=== PATIENT | male | born 1935 | race Caucasian/White ===

== ENCOUNTER → 2020-06-25 15:30 | Outpatient (BNVA) | payer MEDICARE, SELFPAY | PROVIDERS: Visit Provider Urology | DX: R97.20 Elevated prostate specific antigen [PSA] (principal); Z12.5 Encounter for screening for malignant neoplasm of prostate | CPT/HCPCS: 99212 ==

== ENCOUNTER 2020-12-24 12:35 | Outpatient (REF) | payer MEDICARE, SELFPAY ==
[2020-12-24 15:04] LABS: PSA,Total (Free>4and<10) 4.62 ng/mL (0.00-4.00)
[2020-12-25 12:07] LABS: Free Prostate Spec Ag 0.4 ng/mL; Percent Free Prostate Spec Ag 12 % (calc) (>25); Prostate Specific Ag Total 3.3 ng/mL (< OR = 4.0)
== END 2020-12-24 12:36 | disposition home or self-care (01) ==
LOC: HO.10HDL 12:35
PROVIDERS: PCP Urology; Visit Provider Urology
DX: N40.1 Benign prostatic hyperplasia with lower urinary tract symptoms (principal); N13.8 Other obstructive and reflux uropathy; N40.2 Nodular prostate without lower urinary tract symptoms
CPT/HCPCS: 36415; 84153; 84154

== ENCOUNTER → 2020-12-30 14:57 | Outpatient (BNVA) | payer MEDICARE, SELFPAY | PROVIDERS: Visit Provider Urology | DX: R97.20 Elevated prostate specific antigen [PSA] (principal); N40.2 Nodular prostate without lower urinary tract symptoms | CPT/HCPCS: 99212 ==

== ENCOUNTER → 2022-05-24 14:28 | Outpatient (BNVA) | payer MEDICARE, SELFPAY | PROVIDERS: PCP Internal Medicine; Visit Provider Urology | DX: R97.20 Elevated prostate specific antigen [PSA] (principal); C61 Malignant neoplasm of prostate; N40.2 Nodular prostate without lower urinary tract symptoms | CPT/HCPCS: 51798; 99212 ==

== ENCOUNTER → 2022-09-23 13:26 | Outpatient (BNVA) | payer MEDICARE, SELFPAY | PROVIDERS: PCP Internal Medicine; Visit Provider Urology | DX: R97.20 Elevated prostate specific antigen [PSA] (principal) | CPT/HCPCS: Q3014 ==

== ENCOUNTER 2023-03-23 10:01 | Outpatient (REF) | payer MEDICARE, SELFPAY ==
[2023-03-23 11:24] LABS: PSA,Total (Free>4and<10) 8.53 ng/mL (0.00-4.00)
[2023-03-27 13:08] LABS: Free Prostate Spec Ag 1.3 ng/mL; Percent Free Prostate Spec Ag 17 % (calc) (>25); Prostate Specific Ag Total 7.6 ng/mL (< OR = 4.0)
== END 2023-03-23 10:02 | disposition home or self-care (01) ==
LOC: HO.10HDL 10:01
PROVIDERS: Visit Provider Urology
DX: Z12.5 Encounter for screening for malignant neoplasm of prostate (principal); R97.20 Elevated prostate specific antigen [PSA]
CPT/HCPCS: 36415; 84153; 84154

== ENCOUNTER 2023-03-28 14:33 | Outpatient (AMB) | payer MEDICARE, SELFPAY ==
--- NOTE | 2023-03-28 14:33 | MHC.OFFVIS ---
Intake Intake Visit Reasons: 6M PSA(set) Intake Note: Patient is present for Follow Up PSA Urology Med: Finasteride, Terazosin Antibiotic Allergy:None Blood Thinner: None Allergies No Known Allergies Allergy (Verified 03/28/23 14:35) HPI HPI Comments History of Present Illness Details Yan is a very pleasant male. He is a patient of Dr. Kate. 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 Slight climbing PSA through finasteride SARAI 1+ Discussed prostate biopsy Elevated PSA Here for elevated PSA On combination therapy - finasteride and terazosin PSA staying mildly elevated for 85-year-old He has good benefit from combination finasteride and Hytrin Continue to observe He presents for - further evaluation of elevated PSA Laboratory investigations include - a total PSA evaluation 09.12 - 12/23 4.6, 05/26 6.7 F 21%, 09/26 6.4, 03/26 7.6 17% Imaging investigations include - none Individualized Prostate Cancer Risk Calculator - 5-10% chance of prostate cancer diagnosis, Symptoms include - 06/23 weak stream occasional nocturia Overall symptoms are mild His prior IPSS was mild Therapeutic plan will be - prostate biopsy Review of Systems Const Denies chills and Denies fever(s) Card Reports no additional complaints and Denies syncope Resp Denies cough GI Denies abdominal pain and Denies heartburn Reports as per HPI and Denies change in libido Neuro Denies syncope Psych Denies change in libido Endo Denies change in libido Physical Exam Const General: cooperative, healthy appearing, comfortable and no acute distress Orientation/consciousness: patient oriented x3 HEENT Face and sinus: Yes normal facial exam Mouth: moist mucous membranes Neck Neck: Yes normal visual inspection, Yes full ROM and Yes trachea midline Chest Chest palpation & inspection: normal inspection of the chest Resp Effort & Inspection: normal respiratory effort, able to speak in complete sentences and no respiratory distress GI Inspection: Yes normal to inspection Rectal Exam - Male: Yes normal sphincter tone and Yes prostate normal Male General Exam: Yes normal external exam Penis: normal penis and circumcised Meatus: meatus normal Scrotum: scrotum normal Testes: Testes normal Back/Spine/Pelvis Cervical Spine: normal cervical lordosis Thoracic/Lumbar Spine: thoracic and lumbar spine normal to inspection Skin General skin exam: no rashes or lesions noted Neuro General: patient oriented x3, gait normal, tone normal and moves all extremities Extrem General: Yes normal to inspection and Yes capillary refill normal Assessment & Plan Assessment & Plan (1) Elevated PSA: Code(s): R97.20 - Elevated prostate specific antigen [PSA] (2) Prostate nodule: Code(s): N40.2 - Nodular prostate without lower urinary tract symptoms Plan Risks and benefits regarding trans rectal ultrasound with prostate biopsy were discussed. Options of continued surveillance, no treatment and biopsy were offered. The risks include but are not limited to, urinary tract infection, sepsis, difficulty urinating, bleeding into the rectum or bladder that requires intervention and transfusion,and failure to diagnose prostate cancer. The patient understands the options and the risks involved. They wish to proceed. Printed information was provided to ensure he remains off anticoagulation for the appropriate length of time. He may require cardiology or PCP clearance. An antibiotic will be administered prior to, and following the procedure Patient Instructions: Imaging studies, laboratory and physical exam results were discussed and reviewed in detail. No major barriers to patient understanding were identified. An opportunity to ask questions regarding the treatment plan was provided. All questions were answered. The patient expressed understanding and agreement with the above treatment plan. The patient is aware they should contact our office by phone for worsening of their current condition or the appearance of new urologic symptoms. Compliance is encouraged with any medications and followup testing that is ordered. It is a privilege to participate in the urologic care of your patient. If you have any questions or concerns regarding treatment for the above conditions, or other urologic issues, please do not hesitate to contact me. The office telephone contact is [phone]. This note is constructed using voice recognition software. While every effort has been made to ensure accuracy wax pattern coater errors may have been included. Yours sincerely, Dr Shailesh Spivey MD, [facility] - Urology Providers of Expert, Compassionate Care for the Genitourinary System Coding Level of Care Code Est Pt Level 4 (37539) Diagnoses Elevated PSA R97.20 Prostate nodule N40.2
== END 2023-03-28 15:06 | disposition home or self-care (01) ==
PROVIDERS: Visit Provider Urology
DX: R97.20 Elevated prostate specific antigen [PSA] (principal); N40.2 Nodular prostate without lower urinary tract symptoms
CPT/HCPCS: 99214

== ENCOUNTER → 2023-03-28 14:33 | Outpatient (BNVA) | payer MEDICARE, SELFPAY | PROVIDERS: Visit Provider Urology | DX: N40.2 Nodular prostate without lower urinary tract symptoms (principal); R97.20 Elevated prostate specific antigen [PSA] | CPT/HCPCS: 99212 ==

== ENCOUNTER 2023-04-26 07:20 | Outpatient (REF) | payer MEDICARE, SELFPAY ==
[2023-04-26 07:42] VITALS: BMI 23.0
[2023-04-26 07:43] VITALS: BP 176/83; RESP 16; TEMP 36.2; O2SAT 96
--- NOTE | 2023-04-26 08:22 | W.PM.OPN ---
Operative Note Operative Note Date of Service: 04/26/23 Narrative: Preoperative diagnosis: Elevated PSA Postoperative diagnosis: Elevated PSA Procedure: 1. transrectal ultrasound measurement of prostate 2. transrectal ultrasound-guided pudendal nerve block 3. transrectal ultrasound-guided prostate biopsy 12 core Surgeon: Dr. Shailesh Spivey Anesthetic: Local Indications for procedure: Elevated PSA 7.6 17% on fnasteride Procedure: After informed consent was verified, the patient was brought into the procedure area and lay left-hand side down on the table. Patient identity confirmed. Perioperative antibiotics confirmed. Safety pause time out performed. SARAI performed to dilate rectal sphincter Iodine 10cc with Gel was placed per rectum Ultrasound probe was placed per rectum The prostate was measured in 3 dimensions Total volume equals 45 gm No cystic structures were noted Yes calcifications were noted at the surgical margin The prostate was otherwise heterogenous in nature An ultrasound-guided pudendal nerve block was performed using 10 cc of 1% lidocaine. 8 cc was placed at the base and 2 cc of the apex. A 12 core biopsy was performed with 6 cores each side. Two cores were taken at the apex, mid and base. Cores were spaced between lateral and medial. He tolerated the procedure well. Was able to ambulate to bathroom after 5 minutes. Printed instructions regarding antibiotic use and common side effects such as low-grade temperature, potential infection and bleeding were given Pathology: 12 core prostate biopsy.
[2023-04-26 08:25] VITALS: BP 180/86; PULSE 62; RESP 16; O2SAT 98
== END 2023-04-26 07:21 | disposition home or self-care (01) ==
LOC: HO.MS 07:20
PROVIDERS: PCP Internal Medicine; Visit Provider Urology
PROC: (CPT 55700; principal; 2023-04-26 08:00)
DX: C61 Malignant neoplasm of prostate (principal); R97.20 Elevated prostate specific antigen [PSA]
CPT/HCPCS: 55700; 76942; 88305

== ENCOUNTER → 2023-04-26 07:20 | Outpatient (BNV) | payer MEDICARE, SELFPAY | PROVIDERS: PCP Internal Medicine; Visit Provider Urology | DX: R97.20 Elevated prostate specific antigen [PSA] (principal) | CPT/HCPCS: 55700; 76942 ==

== ENCOUNTER 2023-05-03 11:38 | Outpatient (AMB) | payer MEDICARE, SELFPAY ==
--- NOTE | 2023-05-03 11:57 | A.OFFVIS_ITS ---
Intake Intake Visit Reasons: biopsy results Intake Note: Patient is present for Follow Up Biopsy Results Urology Med: Finasteride, Terazosin Antibiotic Allergy: Levaquin Blood Thinner: None Pharmacy: [facility] Allergies levaquin Adverse Reaction (Unknown, Uncoded 05/03/23 11:58) Unknown HPI HPI Comments History of Present Illness Details Yan is a very pleasant male. He is a patient of Dr. Kate. 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 Histologic grade: Nasreen score: 3+4=7 (D), 3+5=8 (L), 4+5=9 (F) % of pattern 4: 35% % of pattern 5: 10% Grade group: 2 (D), 4 (L), 5 (F) Number cores positive: 3 Total number of cores: 12 % of tissue involved: 15% Periprostatic fat inv.: Present Seminal vesicle inv.: Not identified Perineural inv.: Not identified LVI: Not identified Elevated PSA Here for elevated PSA On combination therapy - finasteride and terazosin PSA staying mildly elevated for 85-year-old He has good benefit from combination finasteride and Hytrin Continue to observe He presents for - further evaluation of elevated PSA Laboratory investigations include - a total PSA evaluation 1998 1.9 - 12/23 4.6, 05/26 6.7 F 21%, 09/26 6.4, 7.6 17% Imaging investigations include - none Individualized Prostate Cancer Risk Calculator - 5-10% chance of prostate cancer diagnosis, Symptoms include - 06/23 weak stream occasional nocturia Overall symptoms are mild His prior IPSS was mild Therapeutic plan will be - prostate biopsy Assessment & Plan Assessment & Plan (1) Prostate cancer: Code(s): C61 - Malignant neoplasm of prostate (2) Prostate nodule: Code(s): N40.2 - Nodular prostate without lower urinary tract symptoms Plan Intermittent hormone therapy Complete staging Orders: Orders NM bone scan whole body 05/03/23 C61 - Malignant neoplasm of prostate, C79.51 - Secondary malignant neoplasm of bone Patient Instructions: Imaging studies, laboratory and physical exam results were discussed and reviewed in detail. No major barriers to patient understanding were identified. An opportunity to ask questions regarding the treatment plan was provided. All questions were answered. The patient expressed understanding and agreement with the above treatment plan. The patient is aware they should contact our office by phone for worsening of their current condition or the appearance of new urologic symptoms. Compliance is encouraged with any medications and followup testing that is ordered. It is a privilege to participate in the urologic care of your patient. If you have any questions or concerns regarding treatment for the above conditions, or other urologic issues, please do not hesitate to contact me. The office telephone contact is [phone]. This note is constructed using voice recognition software. While every effort has been made to ensure accuracy dynamometer repairer errors may have been included. Yours sincerely, Dr Shailesh Spivey MD, [facility] - Urology Providers of Expert, Compassionate Care for the Genitourinary System Coding Level of Care Code Est Pt Level 4 (98371) Diagnoses Prostate cancer C61 Prostate nodule N40.2
== END 2023-05-03 12:36 | disposition home or self-care (01) ==
PROVIDERS: PCP Internal Medicine; Visit Provider Urology
DX: C61 Malignant neoplasm of prostate (principal); N40.2 Nodular prostate without lower urinary tract symptoms
CPT/HCPCS: 99213

== ENCOUNTER → 2023-05-03 11:38 | Outpatient (BNVA) | payer MEDICARE, SELFPAY | PROVIDERS: PCP Internal Medicine; Visit Provider Urology ==

== ENCOUNTER → 2023-05-17 10:26 | Outpatient (REF) | payer MEDICARE, SELFPAY ==
--- NOTE | ~2023-05-17 | NM_ITS ---
EXAMINATION: NM BONE SCAN OF THE WHOLE BODY CLINICAL INFORMATION: A 88-year-old male with clinical diagnosis of malignant neoplasm of prostate. 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 COMPARISON: No existing relevant imaging study available. TECHNIQUE: Multiple gamma scintillation camera images of the whole body were performed 2.5 hours following the intravenous administration of 27.0 mCi Tc-99m MDP. The radiotracer was injected through left antecubital superficial vein without complications. FINDINGS: In the head, no focal abnormality. In the thoracic cage and upper extremities, focal increased radiotracer activity is present along the anterior costochondral junction of the right fifth rib and to a lesser extent right seventh rib. 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 Increase tracer avidity at both shoulder likely represent arthritic changes. In the spine, linear increased radiotracer activities at lower lumbar spine and focal increased radiotracer activity T11 to the left of the midline are nonspecific, may represent degenerative changes as well as compression fracture of indeterminate etiology. Radiographic correlation is recommended. Moderate increase radiotracer activity at mid to lower cervical spine likely represent degenerative changes. In the pelvis, no suspicious focal lesion. In the lower extremities, mild increased periarticular activities at both knees (right greater than left) likely represent degenerative changes. Mild increased radiotracer activities at both feet likely represent posttraumatic and/or arthritic changes. No other definite bony abnormalities are noted. The urinary bladder and faint visualization of both kidneys are noted. ND/ND bone scan whole body IMPRESSION: 1. Multifocal nonspecific increased radiotracer activities are present at the cervicothoracic and lumbar spine as well as the right lower anterior medial rib cage. Radiographic correlation as well as follow-up PSMA PET CT study as appropriate is recommended for further clarification. 2. Nonspecific arthritic changes at both shoulders and both knees and both feet.
== END ==
LOC: HO.NUCMED 10:26
PROVIDERS: PCP Internal Medicine; Visit Provider Urology
DX: C61 Malignant neoplasm of prostate (principal); C79.51 Secondary malignant neoplasm of bone
CPT/HCPCS: 78306; A9503

== ENCOUNTER 2023-05-18 10:15 | Outpatient (AMB) | payer MEDICARE, SELFPAY ==
--- NOTE | 2023-05-18 10:52 | AM.OFFVISNUR ---
Intake Intake Visit Reasons: GnRH Allergies levaquin Adverse Reaction (Unknown, Uncoded 05/03/23 11:58) Unknown Office Meds Eligard (6 month) 45 mg (6 month) subcutaneous syringe Performing Provider: Shailesh Spivey MD [place] [facility] [place] [facility] Administered by: Loyda Manley RN on 05/18/23 10:58 Dose Route Admin Location Dispensed Lot Number Expiration Date [facility] Glazing Department Supervisor 45 mg subcut left arm 45 mg [id number] 09/04/24 15887-657-98 [employer]. Coding Assessment & Plan Assessment & Plan Orders: Orders AMB Leuprolide Injection - Practice Supplied Today C61 - Malignant neoplasm of prostate
== END 2023-05-18 11:09 | disposition home or self-care (01) ==
PROVIDERS: PCP Internal Medicine; Visit Provider Urology
DX: C61 Malignant neoplasm of prostate (principal)

== ENCOUNTER → 2023-05-18 10:15 | Outpatient (BNVA) | payer MEDICARE, SELFPAY | PROVIDERS: PCP Internal Medicine; Visit Provider Urology | DX: C61 Malignant neoplasm of prostate (principal) | CPT/HCPCS: 96402; J9217 ==

== ENCOUNTER 2023-08-09 12:03 | Outpatient (REF) | payer MEDICARE, SELFPAY ==
[2023-08-09 14:07] LABS: Prostate Specific Antigen 0.14 ng/mL (<0.05-4.0)
== END 2023-08-09 12:04 | disposition home or self-care (01) ==
LOC: HO.10HDL 12:03
PROVIDERS: Visit Provider Urology
DX: C61 Malignant neoplasm of prostate (principal); Z12.5 Encounter for screening for malignant neoplasm of prostate
CPT/HCPCS: 36415; 84153

== ENCOUNTER 2023-08-16 11:58 | Outpatient (AMB) | payer MEDICARE, SELFPAY ==
--- NOTE | 2023-08-16 11:58 | MHC.OFFVIS ---
Intake Intake Visit Reasons: 3m/PSA(set) Allergies levaquin Adverse Reaction (Unknown, Uncoded 05/03/23 11:58) Unknown HPI HPI Comments History of Present Illness Details Yan is a very pleasant male. He is a patient of Dr. Kate. He is seen for the following urologic conditions - prostate cancer - lower urinary tract symptoms Telemedicine Evaluation 15 min Consultation Doximity Sarika Video attempted Good response to GnRH injection. PSA has fallen to 0.14. Minimal symptoms. 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 PET-CT showed prostate enhancement Biopsy shows prostate cancer - high grade, low volume, clinically localized Recommend intermittent hormone therapy GnRH 05/27 Prostate cancer - 04/26 high-grade, low volume, clinically localized PSA at diagnosis 7.6, free percentage 17 on finasteride Volume of diagnosis - 45gm Histologic type: Acinar adenocarcinoma Nasreen score: 3+4=7 (D), 3+5=8 (L), 4+5=9 (F) % of pattern 4: 35% % of pattern 5: 10% Grade group: 2 (D), 4 (L), 5 (F) Number cores positive: 3 Total number of cores: 12 % of tissue involved: 15% Periprostatic fat inv.: Present Seminal vesicle inv.: Not identified Perineural inv.: Not identified LVI: Not identified Imaging 05/27 bone scan no evidence of bony disease Elevated PSA Here for elevated PSA On combination therapy - finasteride and terazosin PSA staying mildly elevated for 85-year-old He has good benefit from combination finasteride and Hytrin Continue to observe He presents for - further evaluation of elevated PSA Laboratory investigations include - a total PSA evaluation 1998 09. - 12/23 4.6, 05/26 6.7 F 21%, 09/26 6.4, 03/26 7.6 17% Review of Systems Const All systems reviewed & are unremarkable except as noted in HPI and below Reports no additional complaints Resp Reports no additional complaints GI Reports no additional complaints Reports as per HPI Musc Reports no additional complaints Physical Exam Telemedicine evaluation Appropriate responses Regular breathing rate and rhythm HEENT Head: Yes normal to inspection Ears: hearing grossly normal bilaterally Eyes General: appearance normal, both eyes and all related structures Neck Neck: Yes normal visual inspection Chest Chest palpation & inspection: normal inspection of the chest Resp Effort & Inspection: normal respiratory effort and able to speak in complete sentences Assessment & Plan Assessment & Plan (1) Prostate cancer: Code(s): C61 - Malignant neoplasm of prostate Plan Three month follow-up PSA with GnRH Orders: Orders Testosterone, Total 3 Months C61 - Malignant neoplasm of prostate Prostate Specific Antigen 3 Months C61 - Malignant neoplasm of prostate Patient Instructions: Imaging studies, laboratory and physical exam results were discussed and reviewed in detail. No major barriers to patient understanding were identified. An opportunity to ask questions regarding the treatment plan was provided. All questions were answered. The patient expressed understanding and agreement with the above treatment plan. The patient is aware they should contact our office by phone for worsening of their current condition or the appearance of new urologic symptoms. Compliance is encouraged with any medications and followup testing that is ordered. It is a privilege to participate in the urologic care of your patient. If you have any questions or concerns regarding treatment for the above conditions, or other urologic issues, please do not hesitate to contact me. The office telephone contact is [phone]. This note is constructed using voice recognition software. While every effort has been made to ensure accuracy solar sales specialist errors may have been included. Yours sincerely, Dr Shailesh Spivey MD, [facility] - Urology Providers of Expert, Compassionate Care for the Genitourinary System Telehealth Telehealth Location of provider rendering services: practice address Location of patient: address on file Patient Identification confirmed using: Name, : Yes Telehealth method: video Patient verbally consented to treatment: Yes Patient verbally consented to billing insurance company: Yes Patient informed of any privacy concerns related to visit: Yes Coding Level of Care Code Tele Est Pt Level 3 (66229) Diagnoses Prostate cancer C61
== END 2023-08-16 13:44 | disposition home or self-care (01) ==
LOC: HO.HUSH 11:58
PROVIDERS: PCP Internal Medicine; Visit Provider Urology
DX: C61 Malignant neoplasm of prostate (principal)
CPT/HCPCS: 99213

== ENCOUNTER → 2023-08-16 11:58 | Outpatient (BNVA) | payer MEDICARE, SELFPAY | PROVIDERS: PCP Internal Medicine; Visit Provider Urology ==

== ENCOUNTER 2023-11-02 11:37 | Outpatient (REF) | payer MEDICARE, SELFPAY ==
[2023-11-02 13:59] LABS: Prostate Specific Antigen < 0.10 ng/mL (<0.05-4.0)
[2023-11-10 08:28] LABS: Testosterone, Total 10 ng/dL (250-1100)
== END 2023-11-02 11:38 | disposition home or self-care (01) ==
LOC: HO.10HDL 11:37
PROVIDERS: Visit Provider Urology
DX: C61 Malignant neoplasm of prostate (principal); Z12.5 Encounter for screening for malignant neoplasm of prostate
CPT/HCPCS: 36415; 84153; 84403

== ENCOUNTER 2023-11-16 11:26 | Outpatient (AMB) | payer MEDICARE, SELFPAY ==
--- NOTE | 2023-11-16 11:37 | A.OFFVIS_ITS ---
Intake Intake Visit Reasons: Labs/GnRH(set) Intake Note: Patient presents today for a follow-up labs and Christen PATTEN Meds- Finasteride,Terazosin Allergies to Antibiotic- Levaquin Blood Thinner- None It Support Manager Required: No Accompanied by: Self / Same As Patient Allergies levaquin Adverse Reaction (Unknown, Uncoded 11/16/23 11:47) Unknown HPI HPI Comments History of Present Illness Details Yan is a very pleasant male. He is a patient of Dr. Kate. 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 PET-CT showed prostate enhancement Biopsy shows prostate cancer - high grade, low volume, clinically localized Recommend intermittent hormone therapy GnRH 05/27, 11/25 Prostate cancer - 04/26 high-grade, low volume, clinically localized PSA at diagnosis 7.6, free percentage 17 on finasteride Volume of diagnosis - 45gm Histologic type: Acinar adenocarcinoma Nasreen score: 3+4=7 (D), 3+5=8 (L), 4+5=9 (F) % of pattern 4: 35% % of pattern 5: 10% Grade group: 2 (D), 4 (L), 5 (F) Number cores positive: 3 Total number of cores: 12 % of tissue involved: 15% Periprostatic fat inv.: Present Seminal vesicle inv.: Not identified Perineural inv.: Not identified LVI: Not identified Imaging 05/27 bone scan no evidence of bony disea se Elevated PSA Here for elevated PSA On combination therapy - finasteride and terazosin PSA staying mildly elevated for 85-year-old He has good benefit from combination finasteride and Hytrin Continue to observe He presents for - further evaluation of elevated PSA Laboratory investigations include - a total PSA evaluation 1998 1.9 - 12/23 4.6, 05/26 6.7 F 21%, 09/26 6.4, 7.6 17% Review of Systems Const Denies chills and Denies fever(s) Card Reports no additional complaints and Denies syncope Resp Denies cough GI Denies abdominal pain and Denies heartburn Reports as per HPI and Denies change in libido Neuro Denies syncope Psych Denies change in libido Endo Denies change in libido Physical Exam Const General: cooperative, healthy appearing, comfortable and no acute distress Orientation/consciousness: patient oriented x3 HEENT Face and sinus: Yes normal facial exam Mouth: moist mucous membranes Neck Neck: Yes normal visual inspection, Yes full ROM and Yes trachea midline Chest Chest palpation & inspection: normal inspection of the chest Resp Effort & Inspection: normal respiratory effort, able to speak in complete sentences and no respiratory distress GI Inspection: Yes normal to inspection Back/Spine/Pelvis Cervical Spine: normal cervical lordosis Thoracic/Lumbar Spine: thoracic and lumbar spine normal to inspection Skin General skin exam: no rashes or lesions noted Neuro General: patient oriented x3, gait normal, tone normal and moves all extremities Extrem General: Yes normal to inspection and Yes capillary refill normal Office Meds Eligard (6 month) 45 mg (6 month) subcutaneous syringe Performing Provider: Shailesh Spivey MD [place] [facility] [place] [facility] Administered by: Romel Foster LPN on 11/16/23 12:02 Dose Route Admin Location Dispensed Lot Number Expiration Date [facility] Receipt And Report Clerk 45 mg subcut right arm 45 mg [id number] 10/05/24 98650-990-89 [employer]. Assessment & Plan Assessment & Plan (1) Hot flashes related to aromatase inhibitor therapy: Code(s): R23.2 - [place]; T45.1X5A - Adverse effect of antineoplastic and immunosuppressive drugs, initial encounter Plan Three-month follow-up labs tele Orders: Orders Testosterone, Total 3 Months C61 - Malignant neoplasm of prostate AMB Leuprolide Injection - Practice Supplied Today C61 - Malignant neoplasm of prostate Prostate Specific Antigen 3 Months C61 - Malignant neoplasm of prostate Medications: New gabapentin 300 mg PO BEDTIME 30 days 30 caps 0RF R23.2 - [place], T45.1X5A - Adverse effect of antineoplastic and immunosuppressive drugs, initial encounter, T50.905A - Adverse effect of unspecified drugs, medicaments and biological substances, initial encounter Patient Instructions: Imaging studies, laboratory and physical exam results were discussed and reviewed in detail. No major barriers to patient understanding were identified. An opportunity to ask questions regarding the treatment plan was provided. All questions were answered. The patient expressed understanding and agreement with the above treatment plan. The patient is aware they should contact our office by phone for worsening of their current condition or the appearance of new urologic symptoms. Compliance is encouraged with any medications and followup testing that is ordered. It is a privilege to participate in the urologic care of your patient. If you have any questions or concerns regarding treatment for the above conditions, or other urologic issues, please do not hesitate to contact me. The office telephone contact is [phone]. This note is constructed using voice recognition software. While every effort has been made to ensure accuracy deputy fire marshal errors may have been included. Yours sincerely, Dr Shailesh Spivey MD, [facility] - Urology Providers of Expert, Compassionate Care for the Genitourinary System Coding Level of Care Code Est Pt Level 4 (38525) Diagnoses Hot flashes related to aromatase inhibitor therapy R23.2; T45.1X5A
== END 2023-11-16 12:13 | disposition home or self-care (01) ==
PROVIDERS: PCP Internal Medicine; Visit Provider Urology
DX: R23.2 Flushing (principal); T45.1X5A Adverse effect of antineoplastic and immunosuppressive drugs, initial encounter; C61 Malignant neoplasm of prostate
CPT/HCPCS: 99214

== ENCOUNTER → 2023-11-16 11:26 | Outpatient (BNVA) | payer MEDICARE, SELFPAY | PROVIDERS: PCP Internal Medicine; Visit Provider Urology | DX: R23.2 Flushing (principal); T45.1X5A Adverse effect of antineoplastic and immunosuppressive drugs, initial encounter | CPT/HCPCS: 96402; 99212; J9217 ==

== ENCOUNTER 2024-02-09 13:42 | Outpatient (REF) | payer MEDICARE, SELFPAY ==
[2024-02-09 15:54] LABS: Prostate Specific Antigen < 0.10 ng/mL (<0.05-4.0)
[2024-02-14 13:03] LABS: Testosterone, Total 4 ng/dL (250-1100)
== END 2024-02-09 13:43 | disposition home or self-care (01) ==
LOC: HO.LAB 13:42
PROVIDERS: PCP Internal Medicine; Visit Provider Urology
DX: C61 Malignant neoplasm of prostate (principal); Z12.5 Encounter for screening for malignant neoplasm of prostate
CPT/HCPCS: 36415; 84153; 84403

== ENCOUNTER 2024-02-16 13:36 | Outpatient (AMB) | payer MEDICARE, SELFPAY ==
--- NOTE | 2024-02-16 13:39 | MHC.OFFVIS ---
Intake Visit Reasons: 3M PSA/Testo(pending) Intake Note: Patient is Present for Telephone Follow Up For Urology Med: Finasteride, Gabapentin Antibiotic Allergy:Levaquin Blood Thinner:None Allergies levaquin Adverse Reaction (Unknown, Uncoded 02/16/24 13:41) Unknown HPI Comments Details: Yan is a very pleasant male. He is a patient of Dr. Kate. He is seen for the following urologic conditions - prostate cancer - lower urinary tract symptoms Telemedicine Evaluation 15 min Consultation Doximity Sarika Video 02/25 PSA <0.1 T 4 11/25 Second GnRH injection today - some hot flashes. 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 Biopsy shows prostate cancer - high grade, low volume, clinically localized Recommend intermittent hormone therapy GnRH 05/27, 11/25 <0.1 Prostate cancer - 04/26 high-grade, low volume, clinically localized PSA at diagnosis 7.6, free percentage 17 on finasteride Volume of diagnosis - 45gm Histologic type: Acinar adenocarcinoma Haviland score: 3+4=7 (D), 3+5=8 (L), 4+5=9 (F) % of pattern 4: 35% % of pattern 5: 10% Grade group: 2 (D), 4 (L), 5 (F) Number cores positive: 3 Total number of cores: 12 % of tissue involved: 15% Periprostatic fat inv.: Present Seminal vesicle inv.: Not identified Perineural inv.: Not identified LVI: Not identified Imaging 05/27 bone scan no evidence of bony disease Elevated PSA Here for elevated PSA On combination therapy - finasteride and terazosin PSA staying mildly elevated for 85-year-old He has good benefit from combination finasteride and Hytrin Continue to observe He presents for - further evaluation of elevated PSA Laboratory investigations include - a total PSA evaluation 1998 09.9 - 12/23 4.6, 05/26 6.7 F 21%, 09/26 6.4, 03/26 7.6 17% Telehealth Telehealth [facility] Location of provider rendering services: practice address Location of patient: address on file Patient Identification confirmed using: Name, : Yes Telehealth method: video Patient verbally consented to treatment: Yes Patient verbally consented to billing insurance company: Yes Patient informed of any privacy concerns related to visit: Yes Minutes spent on Phone/Video with Pt.: 15 Assessment & Plan Assessment & Plan (1) Prostate cancer: Code(s): C61 - Malignant neoplasm of prostate Category: Medical (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 No major barriers to patient understanding were identified. An opportunity to ask questions regarding the treatment plan was provided. All questions were answered. The patient expressed understanding and agreement with the above treatment plan. The patient is aware they should contact our office by phone for worsening of their current condition or the appearance of new urologic symptoms. Compliance is encouraged with any medications and followup testing that is ordered. It is a privilege to participate in the urologic care of your patient. If you have any questions or concerns regarding treatment for the above conditions, or other urologic issues, please do not hesitate to contact me. The office telephone contact is [phone]. This note is constructed using voice recognition software. While every effort has been made to ensure accuracy contract attorney errors may have been included. Yours sincerely, Dr Shailesh Spivey MD, [facility] - Urology Providers of Expert, Compassionate Care for the Genitourinary System Coding Level of Care Code Tele Est Pt Level 3 (42457) Diagnoses Prostate cancer C61 Osteopenia due to cancer therapy M85.80
== END 2024-02-16 14:15 | disposition home or self-care (01) ==
LOC: HO.HUSH 13:37
PROVIDERS: PCP Internal Medicine; Visit Provider Urology
DX: C61 Malignant neoplasm of prostate (principal); M85.80 Other specified disorders of bone density and structure, unspecified site
CPT/HCPCS: 99213

== ENCOUNTER → 2024-02-16 13:36 | Outpatient (BNVA) | payer MEDICARE, SELFPAY | PROVIDERS: PCP Internal Medicine; Visit Provider Urology ==

== ENCOUNTER 2024-05-15 10:53 | Outpatient (REF) | payer MEDICARE, SELFPAY ==
[2024-05-15 13:49] LABS: Prostate Specific Antigen < 0.10 ng/mL (<0.05-4.0)
[2024-05-21 13:44] LABS: Testosterone, Total 4 ng/dL (250-1100)
== END 2024-05-15 10:54 | disposition home or self-care (01) ==
LOC: HO.10HDL 10:53
PROVIDERS: Visit Provider Urology
DX: Z12.5 Encounter for screening for malignant neoplasm of prostate (principal); C61 Malignant neoplasm of prostate
CPT/HCPCS: 36415; 84153; 84403

== ENCOUNTER 2024-05-21 12:53 | Outpatient (AMB) | payer MEDICARE, SELFPAY ==
--- NOTE | 2024-05-21 13:02 | A.OFFVIS_ITS ---
Intake Visit Reasons: GnRH/labs/DEXA(PA Set)2nd approved treatment Intake Note: Patient is Present for Follow Up Eligard Injection/labs Urology Medication:Finasteride Antibiotic Allergies:Levaquin Blood Thinners: None Recent PSA: 05/15/2024 <0.10 Fur Cutter Required: No Accompanied by: Self / Same As Patient Allergies levaquin Adverse Reaction (Unknown, Uncoded 05/21/24 13:08) Unknown HPI Comments Details: Yan is a very pleasant male. He is a patient of Dr. Kate. He is seen for the following urologic conditions - prostate cancer - lower urinary tract symptoms 05/28 <0.1 3rd GnRH - main side effect is hot flashes associated with sweating every hour 02/25 PSA <0.1 T 4 11/25 Second GnRH injection today - some hot flashes. 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 Biopsy shows prostate cancer - high grade, low volume, clinically localized Recommend intermittent hormone therapy GnRH 05/27, 11/25 <0.1 Prostate cancer - 04/26 high-grade, low volume, clinically localized PSA at diagnosis 7.6, free percentage 17 on finasteride Volume of diagnosis - 45gm Histologic type: Acinar adenocarcinoma Nasreen score: 3+4=7 (D), 3+5=8 (L), 4+5=9 (F) % of pattern 4: 35% % of pattern 5: 10% Grade group: 2 (D), 4 (L), 5 (F) Number cores positive: 3 Total number of cores: 12 % of tissue involved: 15% Periprostatic fat inv.: Present Seminal vesicle inv.: Not identified Perineural inv.: Not identified LVI: Not identified Imaging 05/27 bone scan no evidence of bony disease Elevated PSA Here for elevated PSA On combination therapy - finasteride and terazosin PSA staying mildly elevated for 85-year-old He has good benefit from combination finasteride and Hytrin Continue to observe He presents for - further evaluation of elevated PSA Laboratory investigations include - a total PSA evaluation 1998 1.9 - 12/23 4.6, 05/26 6.7 F 21%, 09/26 6.4, 03/26 7.6 17% Review of Systems Const Denies chills and Denies fever(s) Card Reports no additional complaints and Denies syncope Resp Denies cough GI Denies abdominal pain and Denies heartburn Reports as per HPI and Denies change in libido Neuro Denies syncope Psych Denies change in libido Endo Denies change in libido Physical Exam Const General: cooperative, healthy appearing, comfortable and no acute distress Orientation/consciousness: patient oriented x3 HEENT Face and sinus: Yes normal facial exam Mouth: moist mucous membranes Neck Neck: Yes normal visual inspection, Yes full ROM and Yes trachea midline Chest Chest palpation & inspection: normal inspection of the chest Resp Effort & Inspection: normal respiratory effort, able to speak in complete sentences and no respiratory distress GI Inspection: Yes normal to inspection Back/Spine/Pelvis Cervical Spine: normal cervical lordosis Thoracic/Lumbar Spine: thoracic and lumbar spine normal to inspection Skin General skin exam: no rashes or lesions noted Neuro General: patient oriented x3, gait normal, tone normal and moves all extremities Extrem General: Yes normal to inspection and Yes capillary refill normal Office Meds Eligard (6 month) 45 mg (6 month) subcutaneous syringe Performing Provider: Shailesh Spivey MD [facility] Administered by: Romel Foster LPN on 05/21/24 13:22 Dose Route Admin Location Dispensed Lot Number Expiration Date [facility] [employer] Construction Supervisor 45 mg subcut left arm 45 mg [id number] 11/02/25 35792-286-29 [facility]. Assessment & Plan Assessment & Plan (1) Osteopenia due to cancer therapy: Code(s): M85.80 - Other specified disorders of bone density and structure, unspecified site Category: Medical (2) Hot flashes related to aromatase inhibitor therapy: Code(s): R23.2 - [place]; T45.1X5A - Adverse effect of antineoplastic and immunosuppressive drugs, initial encounter Category: Medical (3) Prostate cancer: Code(s): C61 - Malignant neoplasm of prostate Category: Medical Plan Four month follow-up lab work Patient Instructions: Imaging studies, laboratory and physical exam results were discussed and reviewed in detail. No major barriers to patient understanding were identified. An opportunity to ask questions regarding the treatment plan was provided. All questions were answered. The patient expressed understanding and agreement with the above treatment plan. The patient is aware they should contact our office by phone for worsening of their current condition or the appearance of new urologic symptoms. Compliance is encouraged with any medications and followup testing that is ordered. It is a privilege to participate in the urologic care of your patient. If you have any questions or concerns regarding treatment for the above conditions, or other urologic issues, please do not hesitate to contact me. The office telephone contact is [phone]. This note is constructed using voice recognition software. While every effort has been made to ensure accuracy senior engineering manager errors may have been included. Yours sincerely, Dr Shailesh Spivey MD, [facility] - Urology Providers of Expert, Compassionate Care for the Genitourinary System Coding Level of Care Code Est Pt Level 3 (16427) Diagnoses Osteopenia due to cancer therapy M85.80 Hot flashes related to aromatase inhibitor therapy R23.2; T45.1X5A Prostate cancer C61
== END 2024-05-21 13:25 | disposition home or self-care (01) ==
PROVIDERS: PCP Internal Medicine; Visit Provider Urology
DX: C61 Malignant neoplasm of prostate (principal); R23.2 Flushing; T45.1X5A Adverse effect of antineoplastic and immunosuppressive drugs, initial encounter; M85.80 Other specified disorders of bone density and structure, unspecified site
CPT/HCPCS: 99213

== ENCOUNTER → 2024-05-21 12:53 | Outpatient (BNVA) | payer MEDICARE, SELFPAY | PROVIDERS: PCP Internal Medicine; Visit Provider Urology | DX: C61 Malignant neoplasm of prostate (principal); M85.80 Other specified disorders of bone density and structure, unspecified site; R23.2 Flushing; T45.1X5A Adverse effect of antineoplastic and immunosuppressive drugs, initial encounter | CPT/HCPCS: 96402; 99212; J9217 ==

== ENCOUNTER 2024-09-16 11:29 | Outpatient (REF) | payer MEDICARE, SELFPAY ==
[2024-09-16 13:56] LABS: PSA,Total (Free>4and<10) < 0.10 ng/mL (0.00-4.00)
[2024-09-23 00:53] LABS: Testosterone, Free 0.5 pg/mL (30.0-135.0); Testosterone, Total 5 ng/dL (250-1100)
== END 2024-09-16 11:30 | disposition home or self-care (01) ==
LOC: HO.10HDL 11:29
PROVIDERS: Visit Provider Urology
DX: C61 Malignant neoplasm of prostate (principal); R23.2 Flushing; T45.1X5A Adverse effect of antineoplastic and immunosuppressive drugs, initial encounter; R97.20 Elevated prostate specific antigen [PSA]; N40.2 Nodular prostate without lower urinary tract symptoms; Z12.5 Encounter for screening for malignant neoplasm of prostate
CPT/HCPCS: 36415; 84153; 84402; 84403

== ENCOUNTER 2024-09-20 13:06 | Outpatient (AMB) | payer MEDICARE, SELFPAY ==
--- NOTE | 2024-09-20 13:07 | MHC.OFFVIS ---
Intake Visit Reasons: 4M PSA(Set) Intake Note: Patient is present for 4m/psa Urology Medication:finasteride,sotalol Antibiotic Allergy:levaquin Blood Thinner:none Superintendent Drivers Required: No Allergies levaquin Adverse Reaction (Unknown, Uncoded 09/20/24 13:08) Unknown HPI Comments Details: Yan is a very pleasant male. He is a patient of Dr. Kate. He is seen for the following urologic conditions - prostate cancer - lower urinary tract symptoms Telemedicine Evaluation 15 min Consultation Infusion Resource Sarika Video Does have occasional hot flashes. They have reduced in frequency. This would be an indication that the hormonal status is slowly normalizing. We will review in 4 months 09/28 <0.1, T 4 - may stop finasteride. 05/28 <0.1 3rd GnRH - main side effect is hot flashes associated with sweating every hour 02/25 PSA <0.1 T 4 11/25 Second GnRH injection today - some hot flashes. 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 with no bony metastases Biopsy shows prostate cancer - high grade, low volume, clinically localized Recommend intermittent hormone therapy GnRH 05/27, 11/25 <0.1 Prostate cancer - 04/26 high-grade, low volume, clinically localized PSA at diagnosis 7.6, free percentage 17 on finasteride Volume of diagnosis - 45gm Histologic type: Acinar adenocarcinoma Nasreen score: 3+4=7 (D), 3+5=8 (L), 4+5=9 (F) % of pattern 4: 35% % of pattern 5: 10% Grade group: 2 (D), 4 (L), 5 (F) Number cores positive: 3 Total number of cores: 12 % of tissue involved: 15% Periprostatic fat inv.: Present Seminal vesicle inv.: Not identified Perineural inv.: Not identified LVI: Not identified Imaging 05/27 bone scan no evidence of bony disease Elevated PSA Here for elevated PSA On combination therapy - finasteride and terazosin PSA staying mildly elevated for 85-year-old He has good benefit from combination finasteride and Hytrin Continue to observe He presents for - further evaluation of elevated PSA Laboratory investigations include - a total PSA evaluation 1998 09. - 12/23 4.6, 05/26 6.7 F 21%, 09/26 6.4, 03/26 7.6 17% Review of Systems Const All systems reviewed & are unremarkable except as noted in HPI and below Reports no additional complaints Resp Reports no additional complaints GI Reports no additional complaints Reports as per HPI Musc Reports no additional complaints Physical Exam Telemedicine evaluation Appropriate responses Regular breathing rate and rhythm HEENT Head: Yes normal to inspection Ears: hearing grossly normal bilaterally Eyes General: appearance normal, both eyes and all related structures Neck Neck: Yes normal visual inspection Chest Chest palpation & inspection: normal inspection of the chest Resp Effort & Inspection: normal respiratory effort and able to speak in complete sentences Telehealth Telehealth Location of provider rendering services: practice address Location of patient: address on file Patient Identification confirmed using: Name, : Yes Telehealth method: voice only Patient verbally consented to treatment: Yes Patient verbally consented to billing insurance company: Yes Patient informed of any privacy concerns related to visit: Yes Assessment & Plan Assessment & Plan (1) Prostate cancer: Code(s): C61 - Malignant neoplasm of prostate Category: Medical (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 This deliberate utilization aligns with the visits complexity associated with medical care services serving as a focal point for necessary healthcare, addressing the patient's singular serious or complex condition. This judicious use ensure was appropriate reimbursement, especially in the context of managing such conditions within our specialized, longitudinal urologic practice. This patient has a complex and chronic urologic condition that requires longitudinal follow-up. CMS, Medicare and Medicaid programs; [place] 2023 Payment Policies Fed. Reg 88 (66): 64321-43617 (Apr.102022) Orders: Orders Testosterone, Total 4 Months C61 - Malignant neoplasm of prostate Prostate Specific Antigen 4 Months C61 - Malignant neoplasm of prostate Patient Instructions: Imaging studies, laboratory and physical exam results were discussed and reviewed in detail. No major barriers to patient understanding were identified. An opportunity to ask questions regarding the treatment plan was provided. All questions were answered. The patient expressed understanding and agreement with the above treatment plan. The patient is aware they should contact our office by phone for worsening of their current condition or the appearance of new urologic symptoms. Compliance is encouraged with any medications and followup testing that is ordered. It is a privilege to participate in the urologic care of your patient. If you have any questions or concerns regarding treatment for the above conditions, or other urologic issues, please do not hesitate to contact me. The office telephone contact is [phone]. This note is constructed using voice recognition software. While every effort has been made to ensure accuracy block bolter mule operator errors may have been included. Yours sincerely, Dr Shailesh Spivey MD, [facility] - Urology Providers of Expert, Compassionate Care for the Genitourinary System Coding Level of Care Code Tele Est Pt Level 3 (40434) Diagnoses Prostate cancer C61 Osteopenia due to cancer therapy M85.80 Hot flashes related to aromatase inhibitor therapy R23.2; T45.1X5A
== END 2024-09-20 13:27 | disposition home or self-care (01) ==
LOC: HO.HUSH 13:06
PROVIDERS: PCP Internal Medicine; Visit Provider Urology
DX: C61 Malignant neoplasm of prostate (principal); M85.80 Other specified disorders of bone density and structure, unspecified site; R23.2 Flushing; T45.1X5A Adverse effect of antineoplastic and immunosuppressive drugs, initial encounter
CPT/HCPCS: 98016

== ENCOUNTER 2025-01-13 11:28 | Outpatient (REF) | payer MEDICARE, SELFPAY ==
--- OUTSIDE RECORDS SUMMARY | 2025-01-13 12:17 | XMS_ITS | Clinical Summary ---
Author Organization [facility] Address [address] [place] [address] Phone Care Team Providers Care Nat Instructor Name Role Phone Pierre Kate MD Primary Care Provider [phone] Allergies No known active allergies Medications simvastatin (ZOCOR) 20 mg tablet 10/17/2022 Active sotaloL (BETAPACE) 120 mg tablet Take 1 tablet (120 mg total) by mouth 1 (one) time each day. 10/17/2022 Active terazosin (HYTRIN) 5 mg capsule Take 1 capsule (5 mg total) by mouth 1 (one) time. 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 Encounters Date Type Department Care Team Description 12/16/2024 11:00 AM EDT Ancillary Procedure [facility] [address] [place] [address] Nonrheumatic aortic valve stenosis 12/06/2024 7:55 PM EDT Ancillary Procedure [facility] [address] [place] [address] 11/28/2024 12:25 PM EDT Ancillary Procedure [facility] [address] [place] [address] from Last 3 Months Social History Tobacco Use Types Packs/Day Years Used Date Smoking Tobacco: Never Smokeless Tobacco: Never Tobacco Cessation:Counseling Given: Not Answered Alcohol Use Standard Drinks/Week Comments Never 0 (1 standard drink = 0.6 oz pur e alcohol) Sex and Gender Information Value Date Recorded Sex Assigned at Not on file Legal Sex Male 8:57 PM EST Gender Identity Not on file Sexual Orientation Not on file Obstetrics History Last Filed Vital Signs Vital Sign Reading Time Taken Comments Blood Pressure 150/75 12/16/2024 12:08 PM EDT Pulse 75 10/11/2024 10:54 AM EST Temperature 36.3 ??C (97.3 ??F) 10/11/2024 10:[address] Respiratory Rate - - Oxygen Saturation 100% 10/11/2024 10:54 AM EST Inhaled Oxygen Concentration - - Weight 78 kg (172 lb) 12/16/2024 12:08 PM EDT Height 180.3 cm (5' 11 ) 12/16/2024 12:08 PM EDT Body Mass Index 23.99 12/16/2024 12:08 PM EDT Plan of Treatment Upcoming Encounters Date Type Department Care Team (Late st Contact Info) Description 03/24/2025 9:55 AM EDT Office Visit [facility] [address] [address] Reno Travis MD [address] [facility] [address] [place] [address] 06/02/2025 2:30 PM EDT Ancillary Procedure [facility] [address] [address] 10/13/2025 11:00 AM EST Office Visit [facility] Hematology Oncology [address] [place] [phone] Niranjan Virk MD [address] [place] [id number] Health Maintenance Due Date Last Done Comments Pneumococcal Vaccine: 50+ Years (2 of 2 - PCV) 06/04/2009 06/04/2008 RSV Immunization Adult Patients (1 - 1-dose 75+ series) 2011 DTaP,Tdap,and Td Vaccines (3 - Td or Tdap) 07/02/2018 07/02/2008, 04/11/2001 Zoster Vaccines (2 of 2) 11/01/2019 09/06/2019, 02/03 Depression Screening 08/13/2022 Falls Risk Assessment 08/13/2022 Medicare Annual Wellness Visit 08/13/2022 Social Influencers of Health Screening 08/13/2022 COVID-19 Vaccine ( season) 2024 07/05/2023, 06/26/2022, 04/01/2022, Additional history exists Hypertension/CHF/CAD Annual BMP Blood Test 10/11/2025 10/11/2024 Cholesterol Screening (Lipid Panel) 10/11/2029 10/11/2024 Influenza Vaccine Completed 06/21/2024, , 06/29/2022, Additional history exists HIB Vaccines Aged Out No longer eligi ble based on patient's age to complete this topic HPV Vaccines Aged Out No longer eligi ble based on patient's age to complete this topic Hepatitis A Vaccines Aged Out No long er eligible based on patient's age to complete this topic Hepatitis B Vaccines Aged Out No long er eligible based on patient's age to complete this topic IPV Vaccines Aged Out No longer eligi ble based on patient's age to complete this topic MMR Vaccines Aged Out No longer eligi ble based on patient's age to complete this topic Meningococcal ACWY Vaccine Aged Out N o longer eligible based on patient's age to complete this topic Meningococcal B Vaccine Aged Out No l onger eligible based on patient's age to complete this topic RSV Immunization Patients Under 20 months Aged Out No longer eligible based on patient's age to complete this topic Varicella Vaccines Aged Out No longer eligible based on patient's age to complete this topic Medical Devices Implanted Type [employer] Custodian Device Identifier Shelf Expiration Date Model / Serial / Lot Medt-Card Claria Mri Crtd [id number] Implanted:04/05 (Quantity not on file) Cardiac MOTOR ASSEMBLY SUPERVISOR-D ICD [employer] - CARDIAC RHYTH-CRDM CLARIA MRI CRTD [id number] / [id number] / Procedures Procedure Name Priority Date/Time Associated Diagnosis Comments TRANSTHORACIC ECHOCARDIOGRAM (TTE) COMPLETE Routine 12/16/2024 12:08 PM EDT Nonrheumatic aortic valve stenosis CARDIAC DEVICE CHECK- REMOTE- MURJ Routine 12/06/2024 7:50 PM EDT CARDIAC DEVICE CHECK- REMOTE- MURJ Routine 11/28/2024 12:20 PM EDT COMPREHENSIVE METABOLIC PANEL Routine 10/11/2024 12:07 PM EST Vitamin D deficiency Benign prostate hyperplasia Cardiomyopathy, primary (CMS/HCC V24, CMS/HCC V28) GERD (gastroesophageal reflux disease) Hyperglycemia Aortectasia (CMS/HCC V24) Prostate nodule Hypothyroidism, adult Special screening, prostate cancer LIPID PANEL WITH REFLEX TO DIRECT LDL Routine 10/11/2024 12:07 PM EST Vitamin D deficiency Benign prostate hyperplasia Cardiomyopathy, primary (CMS/HCC V24, CMS/HCC V28) GERD (gastroesophageal reflux disease) Hyperglycemia Aortectasia (CMS/HCC V24) Prostate nodule Hypothyroidism, adult Special screening, prostate cancer from Last 3 Months or Most Recently Relevant to Health Maintenance Results * (ABNORMAL) TRANSTHORACIC ECHOCARDIOGRAM (TTE) COMPLETE (12/16/2024 12:08 PM EDT) Left Atrium Minor [place] 6.5 cm CV PACS Left Atrium Major [place] 6.2 cm CV PACS LA Area Sys (A2C) 30 cm2 CV PACS LA Area Sys (A4C) 21 cm2 CV PACS LA Volume (BP) 76 mL CV PACS RA Area 20.8 cm2 CV PACS RA 2D Volume 59 mL CV PACS AV Mean Gradient 29 mmHg CV PACS AV Mean Gradient 29 mmHg CV PACS Ao VTI 80.1 cm CV PACS Ao VTI 80.1 cm CV PACS AV Peak Figueroa 3.6 m/s CV PACS AV Peak Gradient 52 mmHg CV PACS AV Area Peak Velocity 1.1 cm2 CV PACS Aortic Sinus Valsalva 4.2 cm CV PACS Ascending Aorta 5.0 cm CV PACS IVC Proximal 1.9 cm CV PACS IVC Proximal 0.7 cm CV PACS IVSD 1.4(A) 0.6 - 1.0 cm CV PACS LVIDD 4.3 4.2 - 5.8 cm CV PACS LVIDS 2.8 2.5 - 4.0 cm CV PACS LVOT Diameter 2.4 cm CV PACS LVOT Mean [place] 0.4 m/s CV PACS LVOT Mean Grad 1 mmHg CV PACS LVOT Mean Grad 1 mmHg CV PACS LVOT Peak VTI 15.3 cm CV PACS LVOT Peak [place] 0.7 m/s CV PACS LVOT Peak [place] 0.7 m/s CV PACS LVOT Peak Gradient 2 mmHg CV PACS LVPWD 1.3(A) 0.6 - 1.0 cm CV PACS MV E' Tissue Velocity Lateral 4 cm/s CV PACS MV E' Tissue Velocity Septal 3 cm/s CV PACS LVOT Area 4.5 cm2 CV PACS LVOT Stroke Volume 94 mL CV PACS E Wave Deceleration Time 320(A) 119 - 242 ms CV PACS MV Peak A [place] 0.70 m/s CV PACS MV Peak E [place] 0.64 m/s CV PACS PV Acceleration Time 101 ms CV PACS RV Diastolic Basal Dimension 3.2 2.5 - 4.1 cm CV PACS RV S' 11 cm/s CV PACS TAPSE 26 mm CV PACS TR Peak Velocity 2.23 m/s CV PACS TR Peak Gradient 20 mmHg CV PACS E/E' Ratio Septal 21 CV PACS E/E' Ratio Averaged 19 CV PACS Relative Wall Thickness ratio 0.60 CV PACS FS 35 % CV PACS LV Mass 2D 220 g CV PACS LVOT flow 181 mL/s CV PACS E/A Ratio 0.9 CV PACS E/E' Ratio Lateral 16 CV PACS BSA 1.98 m2 CV PACS LA Volume Index (BP) 38 mL/m2 CV PACS LVIDD Index 2.17 cm/m2 CV PACS LVIDS Index 1.41 cm/m2 CV PACS LV Mass Index 2D 111(A) 50 - 102 g/m2 CV PACS LVOT Stroke Index 47 mL/m2 CV PACS RA 2D Volume Index 30 18 - 32 mL/m2 CV PACS HOWARD Index (Pk Figueroa) 0.56 cm2/m2 CV PACS Ascending Aorta Index 2.53 cm/m2 CV PACS Right Ventricular Peak Systolic Pressure 23 mmHg CV PACS Est. RA Pressure 3 mmHg CV PACS Anatomical Region Laterality Modality Ultrasound Narrative 12/17/2024 12:36 PM EDT ?Left ventricle cavity size is normal. There is moderate hypertrophy. Systolic function is normal with an ejection fraction of 65-70%. There are no regional LV wall motion abnormalities. ?Right ventricle cavity is normal. Right ventricular systolic function is normal. ?Mean aortic valve gradient 29 mmHg. LVOT/AV velocity ratio 0.18. Overall findings consistent with severe stenosis. ??Trace aortic valve regurgitation. ?Aortic valve demonstrates severe stenosis with mean gradient 29 mmHg and trace regurgitation. ?The right ventricular systolic pressure is normal at 23 mmHg. ?The Sinus of Valsalva is dilated (4.2 cm). 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 ?Compared to previous study of 07/01/2024, there are no significant changes. ??Aortic valve gradient is similar. Left Ventricle Left ventricle cavity size is normal. There is moderate hypertrophy. Systolic function is normal with an ejection fraction of 65-70%. There are no regional LV wall motion abnormalities. Indeterminate diastolic function. Right Ventricle Right ventricle cavity appears normal. Systolic function is normal. A pacer wire is present in the right ventricle. Left Atrium Left atrium cavity is mildly dilated. Right Atrium Right atrium cavity is normal. A pacer wire is present in the right atrium. IVC/SVC Inferior vena cava structure is normal. Mitral Valve The leaflets are mildly thickened. There is mild annular calcification. There is mild regurgitation with a centrally directed jet. There is no significant stenosis noted. Tricuspid Valve Tricuspid valve structure is normal. There is trace regurgitation. There is no significant tricuspid valve stenosis. The right ventricular systolic pressure is normal. The RVSP is estimated at 23 mmHg. Aortic Valve The aortic valve is trileaflet. The leaflets are moderately thickened and exhibit moderately reduced excursion. There is trace regurgitation with a centrally directed jet. Mean aortic valve gradient 29 mmHg. LVOT/AV velocity ratio 0.18. Overall findings consistent with severe stenosis. Pulmonic Valve The pulmonic valve was not well visualized. No significant pulmonic valve regurgitation. No significant pulmonary valve stenosis noted. Ascending Aorta The Sinus of Valsalva is dilated (4.2 cm). 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 Pericardium Pericardium appears normal. There is no pericardial effusion. Study Details Overall the study quality was adequate. Aleyda Garber NP CV ECHO PROCEDURES Final Res ult * Cardiac device check - Remote- MURJ (12/06/2024 7:50 PM EDT) Only the most recent of2 resultswithin the time period is included. Date Time Interrogation Session [id number] CV DEVICE CHECK Type Interrogation Session Remote CV DEVICE CHECK Implantable Pulse Generator [employer] Custodian MDT CV DEVICE CHECK Implantable Pulse Generator Type MOTOR ASSEMBLY SUPERVISOR-D CV DEVICE CHECK Implantable Pulse Generator Model Claria MRI CRTD [id number] CV DEVICE CHECK Implantable Pulse Generator Serial Number [id number] CV DEVICE CHECK Implantable Pulse Generator Implant Date [id number] CV DEVICE CHECK Battery Remaining Longevity 80.0 CV DEVICE CHECK Battery Voltage 2.980 CV D EVICE CHECK Battery ASSESSMENT ANALYST Trigger 2.727 CV DEVICE CHECK Battery Status Middle of Service CV DEVICE CHECK Capacitor Charge Time 3.703 CV DEVICE CHECK Alonzo Statistic RA Percent Paced 19.82 CV DEVICE CHECK Alonzo Statistic RV Percent Paced 23.15 CV DEVICE CHECK MOTOR ASSEMBLY SUPERVISOR Statistic LV Percent Paced 97.52 CV DEVICE CHECK MOTOR ASSEMBLY SUPERVISOR Statistic MOTOR ASSEMBLY SUPERVISOR Percent Paced 23.10 CV DEVICE CHECK Atrial Tachy Statistic AT/AF [place] Percent 0.00 CV DEVICE CHECK Lead Channel Sensing Intrinsic Amplitude 1.375 CV DEVICE CHECK Lead Channel Setting Sensing Sensitivity 0.30 CV DEVICE CHECK Lead Channel Impedance Value 342 CV DEVICE CHECK Lead Channel Pacing Threshold Amplitude 0.625 CV DEVICE CHECK Lead Channel Pacing Threshold Pulse Width 0.4 CV DEVICE CHECK Lead Channel RA Pacing Threshold Date 2024-05-25 CV DEVICE CHECK Lead Channel Setting Pacing Amplitude 1.500 CV DEVICE CHECK Lead Channel Setting Pacing Pulse Width 0.4 CV DEVICE CHECK Lead Channel Sensing Intrinsic Amplitude 7.250 CV DEVICE CHECK Lead Channel Setting Sensing Sensitivity 0.30 CV DEVICE CHECK Lead Channel Impedance Value 342 CV DEVICE CHECK Lead Channel Pacing Threshold Amplitude 2.375 CV DEVICE CHECK Lead Channel Pacing Threshold Pulse Width 0.4 CV DEVICE CHECK Lead Channel RV Pacing Threshold Date 2024-05-25 CV DEVICE CHECK Lead Channel Setting Pacing Amplitude 4.750 CV DEVICE CHECK Lead Channel Setting Pacing Pulse Width 0.4 CV DEVICE CHECK Lead Channel Impedance Value 361 CV DEVICE CHECK Lead Channel Pacing Threshold Amplitude 0.750 CV DEVICE CHECK Lead Channel Pacing Threshold Pulse Width 0.4 CV DEVICE CHECK Lead Channel Pacing Threshold Date 2024-05-25 CV DEVICE CHECK Lead Channel Setting Pacing Amplitude 1.250 CV DEVICE CHECK Lead Channel Setting Pacing Pulse Width 0.4 CV DEVICE CHECK Alonzo Setting Mode (NBG Code) DDD CV DEVICE CHECK Ventricular chambers paced during MOTOR ASSEMBLY SUPERVISOR pacing. LVOnly CV DEVICE CHECK Alonzo Setting Lower Rate Limit 60 CV DEVICE CHECK Alonzo Setting AT Mode Switch Rate 171 CV DEVICE CHECK Alonzo Setting Maximum Tracking Rate 125 CV DEVICE CHECK Alonzo Setting Maximum Sensor Rate 120 CV DEVICE CHECK Alonzo Setting PAV Delay 160 CV DEVICE CHECK Alonzo Setting GINNA Delay 140 CV DEVICE CHECK Therapy Statistic Recent Shocks Delivered 0 CV DEVICE CHECK Therapy Statistic Recent Shocks Aborted 0 CV DEVICE CHECK Therapy Statistic Recent ATP Delivered 0 CV DEVICE CHECK RV HV Impedance 68 CV D EVICE CHECK Zone Setting Type Category AT/AF CV DEVICE CHECK Rate 171 CV DEVICE CHECK Therapies All Rx Off CV DEVICE CHECK Zone Setting Status Monitor CV DEVICE CHECK Zone ID 2 CV DEVICE CHECK Zone Setting Type Category VF CV DEVICE CHECK Rate 200 CV DEVICE CHECK Therapies ATP During Charging, 35Jx6 CV DEVICE CHECK Zone Setting Status On CV DEVICE CHECK Zone ID 3 CV DEVICE CHECK Zone Setting Type Category VT CV DEVICE CHECK Zone Setting Status Off CV DEVICE CHECK Zone ID 4 CV DEVICE CHECK Zone Setting Type Category VT CV DEVICE CHECK Rate 150 CV DEVICE CHECK Zone Setting Status ENABLED CV DEVICE CHECK Zone ID 5 CV DEVICE CHECK Zone Setting Type Category VT CV DEVICE CHECK Zone Setting Status Off CV DEVICE CHECK Zone ID 6 CV DEVICE CHECK Date of Service 2024-06-06 CV DEVICE CHECK Anatomical Region Laterality Modality Device Interroga tion 05/26/2024 12:1 7 AM EDT Impressions 05/28/2024 12:45 PM EDT Normal Remote: No Events * Normal Device Function * Alerts or events: None * Battery: OK, 6.67 yrs * Sensing, impedance and thresholds reviewed * Programmed parameters reviewed * Presenting rhythm reviewed * Heart Rate Histograms reviewed * No significant changes noted Heart Failure Diagnostic: Stable * Heart failure diagnostics assessed through the device * Status: Stable * No overt HF present Narrative Procedure Note Reno Travis MD - 12/06/2024 IMPRESSION: Normal Remote: No Events * Normal Device Function * Alerts or events: None * Battery: OK, 6.67 yrs * Sensing, impedance and thresholds reviewed * Programmed parameters reviewed * Presenting rhythm reviewed * Heart Rate Histograms reviewed * No significant changes noted Heart Failure Diagnostic: Stable * Heart failure diagnostics assessed through the device * Status: Stable * No overt HF present Reno Travis MD CV IMPLANTABLE CARDIAC DEVICE PROCEDURES Final Result * Lipid panel with reflex to direct LDL (10/11/2024 12:07 PM EST) [facility] Cholesterol 160 0 - 200 mg/dL LAB CHEMISTRY METHOD 10/11/2024 1:08 PM [facility] Triglycerides 101 0 - 150 mg/dL LAB CHEMISTRY METHOD 10/11/2024 1:08 PM EST [facility] HDL 46 >=40 mg/dL LAB CHEMISTRY METHOD 10/11/2024 1:08 PM EST [facility] LDL Calculated 94 0 - 100 mg/dL LAB CHEMISTRY METHOD 10/11/2024 1:08 PM EST [facility] VLDL Cholesterol Jose 20.2 mg/dL LAB CHEMISTRY METHOD 10/11/2024 1:08 PM EST [facility] Non HDL Chol. (LDL+VLDL) 114 <145 mg/dL LAB CHEMISTRY METHOD 10/11/2024 1:08 PM EST [facility] Chol/HDL Ratio 3.5 0.0 - 4.4 LAB CHEMISTRY METHOD 10/11/2024 1:08 PM [facility] Blood Venous blood specimen / Unknown Venipuncture / Unknown 10/11/2024 12:07 PM EST 10/11/2024 12:28 PM EST Pierre Kate MD LAB BLOOD ORDERABLES Final Resul t [facility] [address] [place] [address], [place] [phone] * (ABNORMAL) Comprehensive metabolic panel (10/11/2024 12:07 PM EST) Sodium 141 133 - 145 mmol/L LAB CHEMISTRY METHOD 10/11/2024 1:08 PM [facility] Potassium 4.5 3.5 - 5.5 mmol/L LAB CHEMISTRY METHOD 10/11/2024 1:08 PM [facility] Chloride 107 96 - 110 mmol/L LAB CHEMISTRY METHOD 10/11/2024 1:08 PM [facility] CO2 30 21 - 32 mmol/L LAB CHEMISTRY METHOD 10/11/2024 1:08 PM [facility] Anion Gap 4 3 - 11 LAB CHEMISTRY METHOD 10/11/2024 1:08 PM [facility] Glucose 119(H) 70 - 100 mg/dL LAB CHEMISTRY METHOD 10/11/2024 1:08 PM [facility] BUN 27(H) 5 - 25 mg/dL LAB CHEMISTRY METHOD 10/11/2024 1:08 PM [facility] Creatinine 1.00 0.70 - 1.30 mg/dL LAB CHEMISTRY METHOD 10/11/2024 1:08 PM [facility] eGFR 72 >=60 mL/min/1. 73m2 LAB CHEMISTRY METHOD 10/11/2024 1:08 PM [facility] Comment:Calculation based on the??Chronic Kidney Disease Epidemiology Collaboration (CKD-EPI) equation refit??without adjustment for race. BUN/Creatinine Ratio 27.0 LAB CHEMISTRY METHOD 10/11/2024 1:08 PM [facility] Calcium 10.0 8.5 - 10.5 mg/dL LAB CHEMISTRY METHOD 10/11/2024 1:08 PM [facility] AST (SGOT) 22 10 - 42 unit/L LAB CHEMISTRY METHOD 10/11/2024 1:08 PM [facility] ALT (SGPT) 23 10 - 60 unit/L LAB CHEMISTRY METHOD 10/11/2024 1:08 PM EST [facility] Alkaline Phosphatase 61 42 - 121 unit/L LAB CHEMISTRY METHOD 10/11/2024 1:08 PM EST [facility] Total Protein 6.4 6.0 - 8.0 g/dL LAB CHEMISTRY METHOD 10/11/2024 1:08 PM EST [facility] Albumin 3.7 3.2 - 5.0 g/dL LAB CHEMISTRY METHOD 10/11/2024 1:08 PM EST [facility] Total Bilirubin 0.7 0.0 - 1.4 mg/dL LAB CHEMISTRY METHOD 10/11/2024 1:08 PM EST [facility] Blood Venous blood specimen / Unknown Venipuncture / Unknown 10/11/2024 12:07 PM EST 10/11/2024 12:28 PM EST Pierre Kate MD LAB BLOOD ORDERABLES Final Resul t [facility] [address] [place] [address], from Last 3 Months or Most Recently Relevant to Health Maintenance Insurance [employer] - [place] MEDICARE ADVANTAGE Care Teams Nat Instructor Relationship Specialty Start Date End Date Pierre Kate MD [address] [place] [address] PCP - General Internal Medicine 07/23/12
--- OUTSIDE RECORDS SUMMARY | 2025-01-13 12:17 | XMS_ITS | Clinical Summary ---
Author Organization [facility] Address [address] [place] [address] Care Team Providers Care Heat Treater Apprentice Name Role Phone Pierre Kate MD Primary Care Provider [phone] Allergies No known active allergies Medications Medication Sig Dispensed Refills Start Date End Date Status finasteride (PROSCAR) 5 MG tablet Take 1 tablet (5 mg total) by mouth daily. 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 Social History Tobacco Use Types Packs/Day Years Used Date Smoking Tobacco: Never Passive Smoke Exposure: Past Smokeless Tobacco: Never Tobacco Cessation:Counseling Given: Not Answered Alcohol Use Standard Drinks/Week Comments Never 0 (1 standard drink = 0.6 oz pur e alcohol) Sex and Gender Information Value Date Recorded Sex Assigned at Not on file Gender Identity Not on file Sexual Orientation Not on file Job Start Date Occupation Industry Not on file Not on file Not on file Last Filed Vital Signs Vital Sign Reading Time Taken Comments Blood Pressure 160/77 04/10/2024 11:10 AM EDT Pulse 66 04/10/2024 11:10 AM EDT Temperature 36.1 ??C (97 ??F) 04/10/2024 11:10 AM EDT Respiratory Rate 18 10/24/2022 10:59 AM EST Oxygen Saturation 100% 04/10/2024 11:10 AM EDT Inhaled Oxygen Concentration - - Weight 78 kg (172 lb) 04/10/2024 11:10 AM EDT Height 180.3 cm (5' 11 ) 04/10/2024 11:10 AM EDT Body Mass Index 23.99 04/10/2024 11:10 AM EDT Plan of Treatment Health Maintenance Due Date Last Done Comments COVID-19 Vaccine (#1) 1941 Depression Screening 1948 Preventative Health Evaluation 1954 DTap / Tdap / Td (1 - Tdap) 1955 Shingrix-Zoster Vaccine (1 of 2) 1955 Fall Risk Assessment 2001 Pneumococcal Vaccine (2 of 2 - PCV) 06/04/2009 06/04/2008 RSV Adult > 60+ Yrs or Pregn ant (1 - 1-dose 75+ series) 2011 Influenza Vaccine (#1) 2024 07/11/2005 Hepatitis B Vaccines Aged Out No long er eligible based on patient's age to complete this topic RSV Ped < 20 months Aged Out No longe r eligible based on patient's age to complete this topic Care Teams Heat Treater Apprentice Relationship Specialty Start Date End Date Pierre Kate MD [address] [place] [id number] PCP - General Internal Medicine 09/01/22
[2025-01-13 13:40] LABS: Prostate Specific Antigen < 0.10 ng/mL (<0.05-4.0)
[2025-01-20 00:52] LABS: Testosterone, Total 4 ng/dL (250-1100)
== END 2025-01-13 11:29 | disposition home or self-care (01) ==
LOC: HO.10HDL 11:28
PROVIDERS: Visit Provider Urology
DX: R23.2 Flushing (principal); C61 Malignant neoplasm of prostate; R97.20 Elevated prostate specific antigen [PSA]; N40.2 Nodular prostate without lower urinary tract symptoms; T45.1X5A Adverse effect of antineoplastic and immunosuppressive drugs, initial encounter; Z12.5 Encounter for screening for malignant neoplasm of prostate
CPT/HCPCS: 36415; 84153; 84403

== ENCOUNTER 2025-01-17 12:52 | Outpatient (AMB) | payer MEDICARE, SELFPAY ==
--- OUTSIDE RECORDS SUMMARY | 2025-01-17 12:56 | XMS_ITS | Clinical Summary ---
Author Organization [facility] Address [address] [place] [address] Care Team Providers Care Cna Caregiver Name Role Phone Pierre Kate MD Primary Care Provider [phone] Allergies No known active allergies Medications Medication [...] age to complete this topic Care Teams Cna Caregiver Relationship Specialty Start Date End Date Pierre Kate MD [address] [place] [id number] PCP - General Internal Medicine 09/01/22
--- OUTSIDE RECORDS SUMMARY | 2025-01-17 12:56 | XMS_ITS | Clinical Summary ---
Author Organization [facility] Address [address] [place] [address] Phone Care Team Providers Care Looper Operator Name Role Phone Pierre Kate MD Primary Care Provider [phone] Allergies No known active allergies Medications simvastatin [...] Description 12/16/2024 11:00 AM EDT Ancillary Procedure [facility] [address] [place] [address] Nonrheumatic aortic valve stenosis 12/06/2024 7:55 PM EDT Ancillary Procedure [facility] [address] [place] [address] 11/28/2024 12:25 PM EDT Ancillary Procedure [facility] [address] [place] [address] from Last 3 Months Social History Tobacco [...] Description 03/24/2025 9:55 AM EDT Office Visit [facility] [address] [address] Reno Travis MD [address] [facility] [address] [place] [address] 06/02/2025 2:30 PM EDT Ancillary Procedure [facility] [address] [address] 10/13/2025 11:00 AM EST Office Visit [facility] Hematology Oncology [address] [place] [phone] Niranjan Virk MD [address] [place] [phone] Health Maintenance Due Date Last Done Comments [...] this topic Medical Devices Implanted Type Area Supervisor Cutting Department Device Identifier Shelf Expiration Date Model / Serial / Lot Medt-Card Claria Mri Crtd [id number] Implanted:04/05 (Quantity not on file) Cardiac STOCK TAKER-D ICD [employer] - CARDIAC RHYTH-CRDM CLARIA MRI CRTD [id number] / [id number] / Procedures Procedure Name Priority Date/Time Associated [...] (12/16/2024 12:08 PM EDT) Left Atrium Minor [place] 6.5 cm CV PACS Left Atrium Major [place] 6.2 cm CV PACS LA Area Sys [...] 32 mL/m2 CV PACS HOWARD Index (Pk Figuerao) 0.56 cm2/m2 CV PACS Ascending Aorta Index [...] period is included. Date Time Interrogation Session [id number] CV DEVICE CHECK Type Interrogation Session Remote CV DEVICE CHECK Implantable Pulse Generator Supervisor Cutting Department MDT CV DEVICE CHECK Implantable Pulse Generator Type STOCK TAKER-D CV DEVICE CHECK Implantable Pulse Generator Model Claria MRI CRTD [id number] CV DEVICE CHECK Implantable Pulse Generator Serial Number [id number] CV DEVICE CHECK Implantable Pulse Generator Implant Date 20220429 CV DEVICE CHECK Battery Remaining Longevity 80.0 CV DEVICE CHECK Battery Voltage 2.980 CV D EVICE CHECK Battery CLOTH BOLT BANDER Trigger 2.727 CV DEVICE CHECK Battery Status Middle of Service CV DEVICE CHECK Capacitor Charge Time 3.703 CV DEVICE CHECK Alonzo Statistic RA Percent Paced 19.82 CV DEVICE CHECK Alonzo Statistic RV Percent Paced 23.15 CV DEVICE CHECK STOCK TAKER Statistic LV Percent Paced 97.52 CV DEVICE CHECK STOCK TAKER Statistic STOCK TAKER Percent Paced 23.10 CV DEVICE CHECK Atrial Tachy Statistic AT/AF [place] Percent 0.00 CV DEVICE CHECK Lead Channel [...] CV DEVICE CHECK Ventricular chambers paced during STOCK TAKER pacing. LVOnly CV DEVICE CHECK Alonzo Setting [...] to direct LDL (10/11/2024 12:07 PM EST) [facility] Cholesterol 160 0 - 200 mg/dL LAB CHEMISTRY METHOD 10/11/2024 1:08 PM [facility] Triglycerides 101 0 - 150 mg/dL LAB CHEMISTRY METHOD 10/11/2024 1:08 PM EST [facility] HDL 46 >=40 mg/dL LAB CHEMISTRY METHOD 10/11/2024 1:08 PM EST [facility] LDL Calculated 94 0 - 100 mg/dL LAB CHEMISTRY METHOD 10/11/2024 1:08 PM EST [facility] VLDL Cholesterol Jose 20.2 mg/dL LAB CHEMISTRY METHOD 10/11/2024 1:08 PM EST [facility] Non HDL Chol. (LDL+VLDL) 114 <145 mg/dL LAB CHEMISTRY METHOD 10/11/2024 1:08 PM EST [facility] Chol/HDL Ratio 3.5 0.0 - 4.4 LAB CHEMISTRY METHOD 10/11/2024 1:08 PM [facility] Blood Venous blood specimen / Unknown Venipuncture / Unknown 10/11/2024 12:07 PM EST 10/11/2024 12:28 PM EST Pierre Kate MD LAB BLOOD ORDERABLES Final Resul t [facility] [address] [place] [address], [place] [phone] * (ABNORMAL) Comprehensive metabolic panel (10/11/2024 12:07 PM EST) Sodium 141 133 - 145 mmol/L LAB CHEMISTRY METHOD 10/11/2024 1:08 PM [facility] Potassium 4.5 3.5 - 5.5 mmol/L LAB CHEMISTRY METHOD 10/11/2024 1:08 PM [facility] Chloride 107 96 - 110 mmol/L LAB CHEMISTRY METHOD 10/11/2024 1:08 PM [facility] CO2 30 21 - 32 mmol/L LAB CHEMISTRY METHOD 10/11/2024 1:08 PM [facility] Anion Gap 4 3 - 11 LAB CHEMISTRY METHOD 10/11/2024 1:08 PM [facility] Glucose 119(H) 70 - 100 mg/dL LAB CHEMISTRY METHOD 10/11/2024 1:08 PM [facility] BUN 27(H) 5 - 25 mg/dL LAB CHEMISTRY METHOD 10/11/2024 1:08 PM [facility] Creatinine 1.00 0.70 - 1.30 mg/dL LAB CHEMISTRY METHOD 10/11/2024 1:08 PM [facility] eGFR 72 >=60 mL/min/1. 73m2 LAB CHEMISTRY METHOD 10/11/2024 1:08 PM [facility] Comment:Calculation based on the??Chronic Kidney Disease Epidemiology Collaboration (CKD-EPI) equation refit??without adjustment for race. BUN/Creatinine Ratio 27.0 LAB CHEMISTRY METHOD 10/11/2024 1:08 PM [facility] Calcium 10.0 8.5 - 10.5 mg/dL LAB CHEMISTRY METHOD 10/11/2024 1:08 PM [facility] AST (SGOT) 22 10 - 42 unit/L LAB CHEMISTRY METHOD 10/11/2024 1:08 PM [facility] ALT (SGPT) 23 10 - 60 unit/L LAB CHEMISTRY METHOD 10/11/2024 1:08 PM EST [facility] Alkaline Phosphatase 61 42 - 121 unit/L LAB CHEMISTRY METHOD 10/11/2024 1:08 PM EST [facility] Total Protein 6.4 6.0 - 8.0 g/dL LAB CHEMISTRY METHOD 10/11/2024 1:08 PM EST [facility] Albumin 3.7 3.2 - 5.0 g/dL LAB CHEMISTRY METHOD 10/11/2024 1:08 PM EST [facility] Total Bilirubin 0.7 0.0 - 1.4 mg/dL LAB CHEMISTRY METHOD 10/11/2024 1:08 PM EST [facility] Blood Venous blood specimen / Unknown Venipuncture / Unknown 10/11/2024 12:07 PM EST 10/11/2024 12:28 PM EST Pierre Kate MD LAB BLOOD ORDERABLES Final Resul t [facility] [address] [place] [address], from Last 3 Months or Most Recently Relevant to Health Maintenance Insurance [employer] - [place] MEDICARE [employer]VANTAGE Care Teams Looper Operator Relationship Specialty Start Date End Date Pierre Kate MD [address] [place] [address] PCP - General Internal Medicine 07/23/12
--- NOTE | 2025-01-17 13:02 | MHC.OFFVIS ---
Intake Visit Reasons: 4m/labs Intake Note: Patient is present for 4M/LABS Urology Medication:FINASTERIDE,SOTALOL,TERAZOSIN Antibiotic Allergy:LEVAQUIN Blood Thinner:NONE Branch Operations Manager Required: No Allergies levaquin Adverse Reaction (Unknown, Uncoded 01/17/25 13:04) Unknown HPI Comments Details: Yan is a very pleasant male. He is a patient of Dr. Kate. He is seen for the following urologic conditions - prostate cancer - lower urinary tract symptoms Four month follow-up Lab stable Still with nocturnal hot sweats Trial Prometrium 3rd urinary edge was given May 202401/26 <0.1 09/28 <0.1, T 4 - january stop finasteride. 05/28 <0.1 3rd GnRH - main side effect is hot flashes associated with sweating every hour 02/25 PSA <0.1 T 4 11/25 Second GnRH injection today - some hot flashes. 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 with no bony metastases Biopsy shows prostate cancer - high grade, low volume, clinically localized Recommend intermittent hormone therapy GnRH 05/27, 11/25 <0.1 Prostate cancer - 04/26 high-grade, low volume, clinically localized - treatment intermittent hormone therapy PSA at diagnosis 7.6, free percentage 17 on finasteride Volume of diagnosis - 45gm Histologic type: Acinar adenocarcinoma Nasreen score: 3+4=7 (D), 3+5=8 (L), 4+5=9 (F) % of pattern 4: 35% % of pattern 5: 10% Grade group: 2 (D), 4 (L), 5 (F) Number cores positive: 3 Total number of cores: 12 % of tissue involved: 15% Periprostatic fat inv.: Present Seminal vesicle inv.: Not identified Perineural inv.: Not identified LVI: Not identified Imaging 05/27 bone scan no evidence of bony disease Elevated PSA Here for elevated PSA On combination therapy - finasteride and terazosin PSA staying mildly elevated for 85-year-old He has good benefit from combination finasteride and Hytrin Continue to observe He presents for - further evaluation of elevated PSA Laboratory investigations include - a total PSA evaluation 1998 1.9 - 12/23 4.6, 05/26 6.7 F 21%, 09/26 6.4, 03/26 7.6 17% Review of Systems Const Denies chills and Denies fever(s) Card Reports no additional complaints and Denies syncope Resp Denies cough GI Denies abdominal pain and Denies heartburn Reports as per HPI and Denies change in libido Neuro Denies syncope Psych Denies change in libido Endo Denies change in libido Physical Exam Const General: cooperative, healthy appearing, comfortable and no acute distress Orientation/consciousness: patient oriented x3 HEENT Face and sinus: Yes normal facial exam Mouth: moist mucous membranes Neck Neck: Yes normal visual inspection, Yes full ROM and Yes trachea midline Chest Chest palpation & inspection: normal inspection of the chest Resp Effort & Inspection: normal respiratory effort, able to speak in complete sentences and no respiratory distress GI Inspection: Yes normal to inspection Back/Spine/Pelvis Cervical Spine: normal cervical lordosis Thoracic/Lumbar Spine: thoracic and lumbar spine normal to inspection Skin General skin exam: no rashes or lesions noted Neuro General: patient oriented x3, gait normal, tone normal and moves all extremities Extrem General: Yes normal to inspection and Yes capillary refill normal Assessment & Plan Assessment & Plan (1) Prostate cancer: Code(s): C61 - Malignant neoplasm of prostate Category: Medical (2) Osteopenia due to cancer therapy: Code(s): M85.80 - Other specified disorders of bone density and structure, unspecified site Category: Medical (3) Hot flashes related to aromatase inhibitor therapy: Code(s): R23.2 - [place]; T45.1X5A - Adverse effect of antineoplastic and immunosuppressive drugs, initial encounter Category: Medical Plan 4 month follow-up lab work Orders: Orders Prostate Specific Antigen 4 Months C61 - Malignant neoplasm of prostate Testosterone, Total 4 Months C61 - Malignant neoplasm of prostate Medications: New progesterone micronized 200 mg PO BEDTIME 30 days 30 caps 1RF R23.2 - Flushing, T45.1X5A - Adverse effect of antineoplastic and immunosuppressive drugs, initial encounter Patient Instructions: This note is constructed using voice recognition software. While every effort has been made to ensure accuracy meeting specialist errors may have been included. Imaging studies, laboratory and physical exam results were discussed and reviewed in detail. No major barriers to patient understanding were identified. An opportunity to ask questions regarding the treatment plan was provided. All questions were answered. The patient expressed understanding and agreement with the above treatment plan. The patient is aware they should contact our office by phone for worsening of their current condition or the appearance of new urologic symptoms. Compliance is encouraged with any medications and followup testing that is ordered. It is a privilege to participate in the urologic care of your patient. If you have any questions or concerns regarding treatment for the above conditions, or other urologic issues, please do not hesitate to contact me. The office telephone contact is [phone]. Sincerely, Dr Shailesh Spivey MD, [facility] - Urology Compassionate Specialist Care for the Genitourinary System Coding Level of Care Code Est Pt Level 4 (89043) Complex EM visit Add On G2211 Diagnoses Prostate cancer C61 Osteopenia due to cancer therapy M85.80 Hot flashes related to aromatase inhibitor therapy R23.2; T45.1X5A
== END 2025-01-17 13:32 | disposition home or self-care (01) ==
LOC: HO.HUSH 12:53
PROVIDERS: PCP Internal Medicine; Visit Provider Urology
DX: C61 Malignant neoplasm of prostate (principal); M85.80 Other specified disorders of bone density and structure, unspecified site; R23.2 Flushing; T45.1X5A Adverse effect of antineoplastic and immunosuppressive drugs, initial encounter
CPT/HCPCS: 99214; G2211

== ENCOUNTER → 2025-01-17 12:52 | Outpatient (BNVA) | payer MEDICARE, SELFPAY | PROVIDERS: PCP Internal Medicine; Visit Provider Urology | DX: C61 Malignant neoplasm of prostate (principal); M85.80 Other specified disorders of bone density and structure, unspecified site; R23.2 Flushing; T45.1X5A Adverse effect of antineoplastic and immunosuppressive drugs, initial encounter | CPT/HCPCS: 99212 ==

== ENCOUNTER 2025-05-13 10:00 | Outpatient (REF) | payer MEDICARE, SELFPAY ==
--- OUTSIDE RECORDS SUMMARY | 2025-05-13 11:45 | XMS_ITS | Clinical Summary ---
Author Organization [facility] Address [address] [place] [address] Care Team Providers Care Attractions Associate Name Role Phone Pierre Kate MD Primary Care Provider [phone] Allergies No known active allergies Medications Medication [...] 66 04/10/2024 11:10 AM EDT Temperature 36.1 C (97 F) 04/10/2024 11:10 AM EDT Respiratory Rate 18 [...] 1-dose 75+ series) 2011 Influenza Vaccine (#1) 2025 07/11/2005 Hepatitis B Vaccines Aged Out No long er eligible based on patient's age to complete this topic RSV Ped < 20 months Aged Out No longe r eligible based on patient's age to complete this topic Care Teams Attractions Associate Relationship Specialty Start Date End Date Pierre Kate MD [address] [place] [id number] PCP - General Internal Medicine 09/01/22
[2025-05-13 13:54] LABS: Prostate Specific Antigen 0.98 ng/mL (<0.05-4.0)
== END 2025-05-13 10:01 | disposition home or self-care (01) ==
LOC: HO.10HDL 10:00
PROVIDERS: Visit Provider Urology
DX: Z12.5 Encounter for screening for malignant neoplasm of prostate (principal); C61 Malignant neoplasm of prostate
CPT/HCPCS: 36415; 84153; 84403

== ENCOUNTER 2025-05-30 10:47 | Outpatient (AMB) | payer MEDICARE, SELFPAY ==
--- OUTSIDE RECORDS SUMMARY | 2025-05-27 11:10 | XMS_ITS | Encounter Summary ---
Author Organization [facility] Address [address] [place] [address] Care Team Providers Care Wired Sweatband Cutter Name Role Phone Pierre Kate MD Primary Care Provider Reason for Visit * Reason Comments Follow-up Encounter Details Date Type Department Care Team (Late st Contact Info) Description 05/27/2025 11:10 AM EDT Office Visit [facility] - [address] [place] [phone] Aleyda Garber NP [address] [place] [phone] Paroxysmal atrial fibrillation (CMS/HCC V24, CMS/HCC V28) (Primary Dx) Social History Tobacco Use Types Packs/Day Years [...] on file Sexual Orientation Not on file documented as of this encounter Last Filed Vital Signs Vital Sign Reading Time Taken Comments Blood Pressure 104/62 05/27/2025 10:52 AM EDT Pulse 73 05/27/2025 10:52 AM EDT Temperature - - Respiratory Rate - - Oxygen Saturation 97% 05/27/2025 10:52 AM EDT Inhaled Oxygen Concentration - - Weight 76.7 kg (169 lb) 05/27/2025 10:52 AM EDT Height 165.1 cm (5' 5 ) 05/27/2025 10:52 AM EDT Body Mass Index 28.12 05/27/2025 10:52 AM EDT documented in this encounter Progress Notes * Aleyda Bass Jcarlos, CAITLIN - 05/27/2025 11:10 AM EDT PRIMARY MOTIVATIONAL SPEAKER: Lemuel Travis MD PCP: Pierre Kate MD Documentation completed with aid of [employer]. I have obtained verbal consent from patient prior to the recording. I have advised patient that he may refuse the recording and require the recording to be turned off at any time during this encounter. Yan Bertrand is a 89 y.o. old male 1) Nonischemic dilated cardiomyopathy: HFreEF - Upgrade to biventricular device in 2008 with normalization of LV function. Cardiac catheterization in 2000, normal coronaries 2) Aortic aneurysm: Measures 5.0 cm by echocardiogram 12/2018 - Evaluated at [facility] who felt surgery was not indicated currently. He is a nonsmoker and will continue to monitor this noninvasively. Chest CT September 2021 4.6 cm - no significant change from 2016, November 2023 - unable to assess ascending aorta. 3) Paroxysmal atrial fibrillation: 4) Status post biventricular ICD. Initial implant in 2004. 2008, inappropriate therapies due to right ventricular lead fracture, 6949 abandoned with implantation of a [employer] Durata Implanted right ventricular lead [employer] model 7121 implanted 2008, abandoned In November of 2014 the 6949 was extracted with implantation of a Medtronic [id number]. The [employer]ro 7121 inserted in [address]/abandoned due to lead failure 5) Ventricular Tachycardia -first diagnosed in 2004, ICD implant, initially prescribed Amio - transitioned to Sotalol prior to DC - (due to side effects and young age at time of event) 6) 7) GI bleed - February 2022, upper GI bleed, hemoglobin 7.3, transfused 4 units of packed red blood cells. Follow-up EGD March 2022, again noted gastric ulcer, MALT lymphoma, treated with radiation, treated empirically for H. pylori, additional study in August 2022, additional study in 2022 biopsies again taken, no specific pathology. PET scan in 2022 showed focal activity along the proximal stomachwith mild wall thickening. GI note from 2024 Persistent moderate symptomatic anemia, improved with iron supplementation.. Followed closely by GI, most recent note October 2024 reads complete pathologic response to radiation. Continued monitoring. Echocardiogram December 2024, normal left ventricular cavity size, moderate hypertrophy, EF 65 to 70% no regional wall motion abnormalities, normal right ventricle, severe aortic stenosis mean gradient 29 mmHg velocity ratio 0.18, trace AI, ascending aorta dilated at 5 cm, compared to study dated June 2024, no significant changes. Septal thickness 1.4 cm History of Present Illness Episode of atrial fibrillation on May 14, approximately 1 hour in duration, average heart rate 81 bpm, patient had a recent GI bleed, patient presents for additional discussion Presents at our request to discuss episode of atrial fibrillation. On 05/14/2025, the device recorded an episode of atrial fibrillation that lasted for about an hour,starting around 2 AM. Another episode was recorded on 03/29/2025, lasting 4 minutes. He reports no symptoms during these episodes but does experience persistent fatigue and increasing dizziness. He is not diabetic and has no history of stroke. He has been on sotalol for several years, with change to once daily dosing based of CrCl. Otherwise reports feeling well, no exertional chest pain, shortness of breath, lightheadedness or palpitations. C/o lightheadedness consistent with orthostasis, Is sleeping well no PND, orthopnea. Noperipheral edema PAST SURGICAL HISTORY: SOCIAL HISTORY - Plays golf Results Diagnostic Testing - Atrial fibrillation episode: 05/14/2025, Recorded at around 2 in the morning, lasting for about an hour. - Atrial fibrillation episode: 03/29/2025, Lasting only 4 minutes. ACTIVE MEDICATIONS: No outpatient medications have been marked as taking for the 05/27/25 encounter (Appointment) with Aleyda Garber NP. ALLERGIES: No Known Allergies FAMILY HISTORY: No family history on file. SOCIAL HISTORY: Social History Tobacco Use Smoking status: Never Smokeless tobacco: Never Substance Use Topics Alcohol use: Never PHYSICAL EXAM: There were no vitals taken for this visit. There is no height or weight on file to calculate BMI. Encounter Date: 03/24/25 ECG 12 lead Result Value Ventricular Rate ECG 65 Atrial Rate 65 P-R Interval 196 QRS Duration 186 Q-T Interval 490 QTc 509 P Wave Leckrone 80 R Leckrone 69 T Leckrone -103 ECG Interpretation Atrial-sensed ventricular-paced rhythm Biventricular pacemaker detected Abnormal ECG When compared with ECG of 26-SEP-2024 12:52, Vent. rate has increased BY 4 BPM Confirmed by Candace TRAVIS JOHN ([id number]) on 03/24/2025 11:49:58 AM *Note: Due to a large number of results and/or encounters for the requested time period, some results have not been displayed. A complete set of results can be found in Results Review. TESTING: Lab Results Component Value Date NA 141 10/11/2024 K 4.5 10/11/2024 CL 107 10/11/2024 CO2 30 10/11/2024 GLUCOSE 119 (H) 10/11/2024 BUN 27 (H) 10/11/2024 CREATININE 1.00 10/11/2024 CALCIUM 10.0 10/11/2024 PROT 6.4 10/11/2024 ALBUMIN 3.7 10/11/2024 BILITOT 0.7 10/11/2024 AST 22 10/11/2024 ALT 23 10/11/2024 ALKPHOS 61 10/11/2024 EGFR 72 10/11/2024 , Lab Results Component Value Date WBC 5.2 10/11/2024 HGB 11.8 (L) 10/11/2024 HCT 36.7 (L) 10/11/2024 MCV 98.9 (H) 10/11/2024 PLT 112 (L) 10/11/2024 , Lab Results Component Value Date CHOL 160 10/11/2024 Lab Results Component Value Date HDL 46 10/11/2024 Lab Results Component Value Date LDLCALC 94 10/11/2024 Lab Results Component Value Date TRIG 101 10/11/2024 Lab Results Component Value Date CHOLHDL 3.5 10/11/2024 , Lab Results Component Value Date TSH 1.28 10/11/2024 , No results found for: DIGOXIN , Lab Results Component Value Date GLUCOSE 119 (H) 10/11/2024 CALCIUM 10.0 10/11/2024 NA 141 10/11/2024 K 4.5 10/11/2024 CO2 30 10/11/2024 CL 107 10/11/2024 BUN 27 (H) 10/11/2024 CREATININE 1.00 10/11/2024 , No results found for: CKTOTAL , CKMB , CKMBINDEX , TROPONINI , HSTROPI , and No results found for: CRP PAST MEDICAL HISTORY: Patient Active Problem List Diagnosis Date Noted Nonrheumatic aortic valve stenosis 03/24/2025 Nonischemic cardiomyopathy ([facility] V24, [facility] V28) 03/24/2025 Ventricular tachycardia ([facility] V24, [facility] V28) 03/24/2025 Iron deficiency anemia due to chronic blood loss 10/18/2022 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 Lemuel Travis MD we discussedthe following today: ASSESSMENT/PLAN: Assessment & Plan Stage 3A PAF -1 episode of atrial fibrillation with a duration of 1 hour - [id number] 2 for age, in consultation with Dr. Lemuel Travis given lower risk of stroke, isolated event we will continue with watchful waiting - Stroke risk reduction, in setting of prior GI bleed - with an additional prolonged episode again discussed watchman procedure understanding that it requires SAL or other imaging pre procedure and again 45 days post procedure; use of general anesthesia, potential overnight hospital stay; pre and post anticoagulation and/or antiplatelet agent regime will be decided on an individual basis; will require dental prophylaxis for 6 months post implant. Risks including but not limited to vascular injury, infection, pain, cardiac perforation, arrhythmias, cardiac tamponade, stroke, myocardial infarction and Continue current dose of sotalol, per most recent labs calculated creatinine clearance 54.54 mL/min, (creatinine clearance 30-59-usual dose every 24 hours) continue with once daily dosing with monitoring of renal function, QTc stable, slightly prolonged, continue to monitor. Lightheadedness - Consistent with orthostasis, no exertional lightheadedness - Blood pressure relatively low at this visit, on no antihypertensive agents, certainly some beta-angélica effect with sotalol, continue to monitor - Advised to maintain adequate hydration. - Current plan: monitor for recurrence of atrial fibrillation without initiating anticoagulation therapy. - Continue on sotalol 120 mg once daily for ventricular arrhythmias. Aortic valve stenosis: - Continue to monitor with serial echocardiogram, no indication for intervention at this time TAA - History as described above, stable, continue to monitor with serial echocardiogram Ventricular tachycardia - No recurrence on current dose of sotalol Problem List Items Addressed This Visit None Thank you for allowing us to participate in the care of this patient. Today's documentation was made using voice recognition software.This note may contain grammatical errors secondary to this software. Cosigned by Lemuel Travis MD at 05/28/2025 10:32 AM EDT documented in this encounter Plan of Treatment Upcoming Encounters Date Type Department Care Team (Late st Contact Info) Description 10/13/2025 11:00 AM EST Office Visit [facility] Hematology Oncology [address] [place] [address] Niranjan Virk MD [address] [place] [address] documented as of this encounter Procedures Procedure Name Priority Date/Time Associated Diagnosis Comments ECG 12-LEAD Routine 05/27/2025 6:29 PM EDT Paroxysmal atrial fibrillation (CMS/HCC V24, CMS/HCC V28) documented in this encounter Results * ECG 12 lead (05/27/2025 6:29 PM EDT) Ventricular Rate ECG 73 BPM GEMUSE Atrial Rate 73 BPM GEMUSE P-R Interval 200 ms GEMUSE QRS Duration 152 ms GEMUSE Q-T Interval 454 ms GEMUSE QTc 500 ms GEMUSE P Wave Leckrone 75 degrees GEMUSE R Leckrone 61 degrees GEMUSE T Leckrone -77 degrees GEMUSE ECG Interpretation Atrial-sensed ventricular-pa rickie rhythm with occasional AV dual-paced complexes and with occasional Premature ventricular complexes Abnormal ECG When compared with ECG of 24-MAR-2025 10:02, Premature ventricular complexes are now Present Vent. rate has increased BY 8 BPM Confirmed by Candace TRAVIS, LEMUEL ([id number]) on 05/29/2025 1:40:32 PM GEMUSE 05/27/2025 11:0 1 AM EDT 05/29/2025 1:40 PM EDT Aleyda Garber TECHNICAL SUPPORT ASSOCIATE ECG ORDERABLES Edited Resul t - Final GEMUSE documented in this encounter Visit Diagnoses Diagnosis Paroxysmal atrial fibrillation (CMS/HCC V24, CMS/HCC V28)- Primary Atrial fibrillation documented in this encounter Care Teams Wired Sweatband Cutter Relationship Specialty Start Date End Date Pierre Kate MD [address] [place] [address] PCP - General Internal Medicine 07/23/12 documented as of this encounter
--- OUTSIDE RECORDS SUMMARY | 2025-05-27 13:30 | XMS_ITS | Encounter Summary ---
Author Organization [facility] Address [address] [place] [address] Care Team Providers Care Cemetery Manager Name Role Phone Pierre Kate MD Primary Care Provider [phone] Encounter Details Date Type Department Care Team (Latest Contact Info) Description 05/27/2025 1:30 PM EDT Ancillary Procedure [facility] - [facility] [address] [facility] [address] [place] [address] Encounter for adjustment or management of cardiac device Social History Tobacco Use Types Packs/Day Years Used Date Smoking Tobacco: Never Smokeless Tobacco: Never Alcohol Use Standard Drinks/Week Comments Never 0 (1 standard drink = 0.6 oz pur e alcohol) Sex and Gender Information Value Date Recorded Sex Assigned at Not on file Legal Sex Male 8:57 PM EST Gender Identity Not on file Sexual Orientation Not on file documented as of this encounter Plan of Treatment Upcoming Encounters Date Type Department Care Team (Late st Contact Info) Description 10/13/2025 11:00 AM EST Office Visit [facility] Hematology Oncology [address] [place] [address] Niranjan Virk MD [address] [place] [address] Pending Results Name Type Priority Associated Diagnoses Date /Time Cardiac device check - In Clinic Implantable Cardiac Device Routine Encounter for adjustment or management of cardiac device 05/27/2025 3:05 PM EDT documented as of this encounter Visit Diagnoses Diagnosis Encounter for adjustment or management of cardiac device documented in this encounter Care Teams Cemetery Manager Relationship Specialty Start Date End Date Pierre Kate MD [address] [place] [address] PCP - General Internal Medicine 07/23/12 documented as of this encounter
--- NOTE | 2025-05-30 10:48 | A.OFFVIS_ITS ---
Intake Visit Reasons: 4m/Labs Intake Note: Patient is present for 4M/LABS Urology Medication:FINASTERIDE,,TERAZOSIN Antibiotic Allergy:LEVAQUIN Blood Thinner:NONE Labs done 05/13/25 PSA 0.98, Total testosterone 154 Language Arts Teacher Required: No Accompanied by: Self / Same As Patient Allergies levaquin Adverse Reaction (Unknown, Uncoded 01/17/25 13:04) Unknown HPI Comments Details: Yan is a very pleasant male. He is a patient of Dr. Kate. He is seen for the following urologic conditions - prostate cancer - high grade, low volume initial treatment intermittent hormone therapy - lower urinary tract symptoms Telemedicine Evaluation 15 min Consultation [employer] Sarika Video Doing well Significant decline in hot flashes needle six-month follow-up repeat lab work 05/29 0.98 T 154 01/26 <0.1 09/28 <0.1, T 4 - may stop finasteride. 05/28 <0.1 3rd GnRH - main side effect is hot flashes associated with sweating every hour 02/25 PSA <0.1 T 4 11/25 Second GnRH injection today - some hot flashes. 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 with no bony metastases Biopsy shows prostate cancer - high grade, low volume, clinically localized Recommend intermittent hormone therapy Prostate cancer - 04/26 high-grade, low volume, clinically localized - treatment intermittent hormone therapy PSA at diagnosis 7.6, free percentage 17 on finasteride Volume of diagnosis - 45gm Histologic type: Acinar adenocarcinoma Nasreen score: 3+4=7 (D), 3+5=8 (L), 4+5=9 (F) % of pattern 4: 35% % of pattern 5: 10% Grade group: 2 (D), 4 (L), 5 (F) Number cores positive: 3 Total number of cores: 12 % of tissue involved: 15% Periprostatic fat inv.: Present Seminal vesicle inv.: Not identified Perineural inv.: Not identified LVI: Not identified Imaging 05/27 bone scan no evidence of bony disease Elevated PSA Here for elevated PSA On combination therapy - finasteride and terazosin PSA staying mildly elevated for 85-year-old He has good benefit from combination finasteride and Hytrin Continue to observe He presents for - further evaluation of elevated PSA Laboratory investigations include - a total PSA evaluation 1998 1.9 - 12/23 4.6, 05/26 6.7 F 21%, 09/26 6.4, 03/26 7.6 17% Review of Systems Const All systems reviewed & are unremarkable except as noted in HPI and below Reports no additional complaints Resp Reports no additional complaints GI Reports no additional complaints Reports as per HPI Musc Reports no additional complaints Physical Exam Telemedicine evaluation Appropriate responses Regular breathing rate and rhythm HEENT Head: Yes normal to inspection Ears: hearing grossly normal bilaterally Eyes General: appearance normal, both eyes and all related structures Neck Neck: Yes normal visual inspection Chest Chest palpation & inspection: normal inspection of the chest Resp Effort & Inspection: normal respiratory effort and able to speak in complete sentences Telehealth Telehealth Telehealth Platform: [employer] Location of provider rendering services: practice address Location of patient: address on file Patient Identification confirmed using: Name, : Yes Telehealth method: video Patient verbally consented to treatment: Yes Patient verbally consented to billing insurance company: Yes Patient informed of any privacy concerns related to visit: Yes Minutes spent on Phone/Video with Pt.: 15 Assessment & Plan Assessment & Plan (1) Prostate cancer: Code(s): C61 - Malignant neoplasm of prostate Category: Medical Plan Six-month follow-up lab work Orders: Orders Testosterone, Total 6 Months C61 - Malignant neoplasm of prostate Prostate Specific Antigen 6 Months C61 - Malignant neoplasm of prostate Medications: Discontinued finasteride Discontinued Reason: Doctor's Order 5 mg PO DAILY 90 days 90 tabs 1RF Patient Instructions: This note is constructed using voice recognition software. While every effort has been made to ensure accuracy marine services technician errors may have been included. Imaging studies, laboratory and physical exam results were discussed and reviewed in detail. No major barriers to patient understanding were identified. An opportunity to ask questions regarding the treatment plan was provided. All questions were answered. The patient expressed understanding and agreement with the above treatment plan. The patient is aware they should contact our office by phone for worsening of their current condition or the appearance of new urologic symptoms. Compliance is encouraged with any medications and followup testing that is ordered. It is a privilege to participate in the urologic care of your patient. If you have any questions or concerns regarding treatment for the above conditions, or other urologic issues, please do not hesitate to contact me. The office telephone contact is [phone]. Sincerely, Dr Shailesh Spivey MD, [facility] - Urology Compassionate Specialist Care for the Genitourinary System Coding Level of Care Code Tele Est Pt Level 3 (26023) Complex EM visit Add On G2211 Diagnoses Prostate cancer C61
--- OUTSIDE RECORDS SUMMARY | 2025-05-30 12:27 | XMS_ITS | Clinical Summary ---
Author Organization [facility] Address [address] [place] [address] Phone Care Team Providers Care Ekg Manager Name Role Phone Pierre Kate MD Primary Care Provider [phone] Allergies No known active allergies Medications simvastatin (ZOCOR) 20 mg tablet 10/17/2022 Active sotaloL (BETAPACE) 120 mg tablet Take 1 tablet (120 mg total) by mouth 1 (one) time each day. 10/17/2022 Active terazosin (HYTRIN) 5 mg capsule Take 1 capsule (5 mg total) by mouth 1 (one) time. 10/17/2022 Active Active Problems Problem Noted Date Diagnosed Date Nonrheumatic aortic valve stenosis 03/24/2025 Overview (03/24/2025): Severe aortic stenosis by echocardiogram. Assessment & Plan (03/24/2025 10:20 AM EDT): Current mean gradient 29 mmHg which is stable. No classic symptoms of aortic stenosis. Discussed pros and cons of TAVR evaluation and we will continue conservative management. He will look for any signs or symptoms of worsening AAS and let me know Nonischemic cardiomyopathy (CMS/HCC V24, CMS/HCC V28) 03/24/2025 Overview (03/24/2025): Nonischemic dilated cardiomyopathy diagnosed in 2008. 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 Assessment & Plan (03/24/2025 10:21 AM EDT): Remained euvolemic and had normalization of LVEF. Ventricular tachycardia (CMS/HCC V24, CMS/HCC V2 8) 03/24/2025 Overview (03/24/2025): Episodes of VT leading to initiation of sotalol. QT interval tolerated well. Renal function normal. No recent VT by device interrogation Assessment & Plan (03/24/2025 10:22 AM EDT): Doing well with no episodes of VT and no atrial arrhythmias. Device is working well with battery longevity of several years duration remaining. ECG morphology suggests biventricular capture. Continue remote monitoring and sotalol. 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 Encounters Date Type Department Care Team Description 05/27/2025 1:30 PM EDT Ancillary Procedure [facility] [address] [place] [address] Encounter for adjustment or management of cardiac device 05/27/2025 11:10 AM EDT Office Visit [facility] - [address] [place] [address] Aleyda Garber NP Paroxysmal atrial fibrillation (CMS/HCC V24, CMS/HCC V28) (Primary Dx) 05/17/2025 Telephone [facility] - [address] [place] [address] Reno Travis MD 05/16/2025 8:30 AM EDT Ancillary Procedure [facility] - [address] [place] [address] 05/15/2025 4:45 PM EDT Ancillary Procedure [facility] - [address] [place] [address] 05/14/2025 Telephone [facility] - [address] [place] [address] Aleyda Garber NP 03/24/2025 9:55 AM EDT Office Visit [facility] [address] [facility] [address] [place] [phone] Reno Travis MD Paroxysmal atrial fibrillation (CMS/HCC V24, CMS/HCC V28) (Primary Dx); Nonrheumatic aortic valve stenosis; Nonischemic cardiomyopathy (CMS/HCC V24, CMS/HCC V28); Ventricular tachycardia (CMS/HCC V24, CMS/HCC V28) 03/03/2025 2:25 PM EDT Ancillary Procedure [facility] [address] [facility] [address] [place] [id number] from Last 3 Months Social History Tobacco [...] Pulse 73 05/27/2025 10:52 AM EDT Temperature 36.3 C (97.3 F) 10/11/2024 10:54 AM EST Respiratory Rate - - Oxygen Saturation 97% 05/27/2025 10:52 AM EDT Inhaled Oxygen Concentration - - Weight 76.7 kg (169 lb) 05/27/2025 10:52 AM EDT Height 165.1 cm (5' 5 ) 05/27/2025 10:52 AM EDT Body Mass Index 28.12 05/27/2025 10:52 AM EDT Plan of Treatment Upcoming Encounters Date Type Department Care Team (Late st Contact Info) Description 10/13/2025 11:00 AM EST Office Visit [facility] Hematology Oncology [address] [place] [phone] Niranjan Virk MD [address] [place] [phone] Health Maintenance Due Date Last Done Comments Pneumococcal Vaccine: 50+ Years (2 of 2 - PCV) 06/04/2009 06/04/2008 RSV Immunization Adult Patients (1 - 1-dose 75+ series) 2011 DTaP,Tdap,and Td Vaccines (3 - Td or Tdap) 07/02/2018 07/02/2008, 04/11/2001 Zoster Vaccines (2 of 2) 11/01/2019 09/06/2019, 02/03 Falls Risk Assessment 08/13/2022 Medicare Annual Wellness Visit 08/13/2022 Social Influencers of Health Screening 08/13/2022 Depression Screening 09/04/2024 COVID-19 Vaccine ( season) 2025 07/05/2023, 06/26/2022, 04/01/2022, Additional history exists Influenza Vaccine (#1) 2025 , 06/22/2023, 06/29/2022, Additional history exists Hypertension/CHF/CAD Annual BMP Blood Test 10/11/2025 10/11/2024 Cholesterol Screening (Lipid Panel) 10/11/2029 10/11/2024 HIB Vaccines Aged Out No longer eligi [...] this topic Medical Devices Implanted Type Area Pediatric Pathologist Device Identifier Shelf Expiration Date Model / Serial / Lot Medt-Card Zeny Mri Crtd [id number] Implanted:04/05 (Quantity not on file) Cardiac FARMER GENERAL-D ICD MED[employer] - CARDIAC RHYTH-CRDM ZENY MRI CRTD [id number] / [id number] / Procedures Procedure Name Priority Date/Time Associated Diagnosis Comments ECG 12-LEAD Routine 05/27/2025 6:29 PM EDT Paroxysmal atrial fibrillation (CMS/HCC V24, CMS/HCC V28) CARDIAC DEVICE CHECK- REMOTE- MURJ Routine 05/16/2025 8:25 AM EDT CARDIAC DEVICE CHECK- REMOTE- MURJ Routine 05/15/2025 4:44 PM EDT ECG 12-LEAD Routine 03/24/2025 10:23 AM EDT Paroxysmal atrial fibrillation (CMS/HCC V24, CMS/HCC V28) CARDIAC DEVICE CHECK- REMOTE- MURJ Routine 03/03/2025 2:23 PM EDT COMPREHENSIVE METABOLIC PANEL Routine 10/11/2024 [...] Recently Relevant to Health Maintenance Results * ECG 12 lead (05/27/2025 6:29 PM EDT) Only the most recent of2 resultswithin the time period is included. Ventricular Rate ECG 73 BPM GEMUSE Atrial Rate 73 BPM GEMUSE P-R Interval 200 ms GEMUSE QRS Duration 152 ms GEMUSE Q-T Interval 454 ms GEMUSE QTc 500 ms GEMUSE P Wave [place] 75 degrees GEMUSE R [place] 61 degrees GEMUSE T [place] -77 degrees GEMUSE ECG Interpretation Atrial-sensed ventricular-pa rickie rhythm with occasional AV dual-paced complexes and with occasional Premature ventricular complexes Abnormal ECG When compared with ECG of 24-MAR-2025 10:02, Premature ventricular complexes are now Present Vent. rate has increased BY 8 BPM Confirmed by Candace TRAVIS JOHN ([id number]) on 05/29/2025 1:40:32 PM GEMUSE 05/27/2025 11:0 1 AM EDT 05/29/2025 1:40 PM EDT us Aleyda Garber NP ECG ORDERABLES Edited Resul t - Final GEMUSE * Cardiac device check - Remote- MURJ (05/16/2025 8:25 AM EDT) Only the most recent of3 resultswithin the time period is included. Date Time Interrogation Session [id number] CV DEVICE CHECK Type Interrogation Session Remote CV DEVICE CHECK Implantable Pulse Generator Pediatric Pathologist MDT CV DEVICE CHECK Implantable Pulse Generator Type FARMER GENERAL-D CV DEVICE CHECK Implantable Pulse Generator Model Claria MRI CRTD [id number] CV DEVICE CHECK Implantable Pulse Generator Serial Number [id number] CV DEVICE CHECK Implantable Pulse Generator Implant Date [id number] CV DEVICE CHECK Battery Remaining Longevity 56.0 CV DEVICE CHECK Battery Voltage 2.970 CV D EVICE CHECK Battery CINDER PIT CRANE OPERATOR Trigger 2.727 CV DEVICE CHECK Battery Status Middle of Service CV DEVICE CHECK Capacitor Charge Time 3.773 CV DEVICE CHECK Alonzo Statistic RA Percent Paced 32.90 CV DEVICE CHECK Atrial Tachy Statistic AT/AF [place] Percent 0.00 CV DEVICE CHECK Lead Channel Sensing Intrinsic Amplitude 0.875 CV DEVICE CHECK Lead Channel Setting Sensing Sensitivity 0.30 CV DEVICE CHECK Lead Channel Impedance Value 361 CV DEVICE CHECK Lead Channel Pacing Threshold Amplitude 0.750 CV DEVICE CHECK Lead Channel Pacing Threshold Pulse Width 0.4 CV DEVICE CHECK Lead Channel RA Pacing Threshold Date 2025-05-13 CV DEVICE CHECK Lead Channel Setting Pacing Amplitude 1.500 CV DEVICE CHECK Lead Channel Setting Pacing Pulse Width 0.4 CV DEVICE CHECK Lead Channel Sensing Intrinsic Amplitude 7.500 CV DEVICE CHECK Lead Channel Setting Sensing Sensitivity 0.30 CV DEVICE CHECK Lead Channel Impedance Value 361 CV DEVICE CHECK Lead Channel Pacing Threshold Amplitude 2.000 CV DEVICE CHECK Lead Channel Pacing Threshold Pulse Width 0.4 CV DEVICE CHECK Lead Channel RV Pacing Threshold Date 2025-05-14 CV DEVICE CHECK Lead Channel Setting Pacing Amplitude 4.000 CV DEVICE CHECK Lead Channel Setting Pacing Pulse Width 0.4 CV DEVICE CHECK Lead Channel Impedance Value 361 CV DEVICE CHECK Lead Channel Pacing Threshold Amplitude 0.750 CV DEVICE CHECK Lead Channel Pacing Threshold Pulse Width 0.4 CV DEVICE CHECK Lead Channel Pacing Threshold Date 2025-05-14 CV DEVICE CHECK Lead Channel Setting Pacing Amplitude 1.250 CV DEVICE CHECK Lead Channel Setting Pacing Pulse Width 0.4 CV DEVICE CHECK Alonzo Setting Mode (NBG Code) DDD CV DEVICE CHECK Ventricular chambers paced during FARMER GENERAL pacing. BiV CV DEVICE CHECK Alonzo Setting Lower Rate Limit 60 CV DEVICE CHECK Alonzo Setting AT Mode Switch Rate 171 CV DEVICE CHECK Alonzo Setting Maximum Tracking Rate 125 CV DEVICE CHECK Alonzo Setting Maximum Sensor Rate 120 CV DEVICE CHECK Alonzo Setting PAV Delay 170 CV DEVICE CHECK Alonzo Setting GINNA Delay 110 CV DEVICE CHECK FARMER GENERAL LV-RV Delay 0 CV D EVICE CHECK Therapy Statistic Recent Shocks Delivered 0 CV DEVICE CHECK Therapy Statistic Recent Shocks Aborted 0 CV DEVICE CHECK Therapy Statistic Recent ATP Delivered 0 CV DEVICE CHECK RV HV Impedance 67 CV D EVICE CHECK Zone Setting Type [...] 6 CV DEVICE CHECK Date of Service 2025-06-05 CV DEVICE CHECK Anatomical Region Laterality Modality Device Interroga tion 05/14/2025 2:12 AM EDT Impressions 05/16/2025 8:20 AM EDT Atrial Fibrillation w/Controlled V Response * Stored EGMs are consistent with or suggestive of Atrial Fibrillation with Controlled Ventricular Response * AT/AF [place]: % * Total episodes: 1 * Longest episode: Ongoing. Went into AF at 1:52 am Heart Failure Diagnostic: Stable * Heart failure diagnostics assessed through the device * Status: Stable * No overt HF present Narrative Procedure Note Aleyda Garber NP - 05/16/2025 IMPRESSION: Atrial Fibrillation w/Controlled V Response * Stored EGMs are consistent with or suggestive of Atrial Fibrillationwith Controlled Ventricular Response * AT/AF [place]: % * Total episodes: 1 * Longest episode: Ongoing. Went into AF at 1:52 am Heart Failure Diagnostic: Stable * Heart failure diagnostics assessed through the device * Status: Stable * No overt HF present Aleyda Garber NP CV IMPLANTABLE CARDIAC DEVIC E PROCEDURES Final Result * Lipid panel with reflex to direct LDL (10/11/2024 12:07 PM EST) Cholesterol 160 0 - 200 mg/dL LAB CHEMISTRY METHOD 10/11/2024 1:08 PM [facility] Triglycerides 101 0 - 150 mg/dL LAB CHEMISTRY METHOD 10/11/2024 1:08 PM [facility] HDL 46 >=40 mg/dL LAB CHEMISTRY METHOD 10/11/2024 1:08 PM [facility] LDL Calculated 94 0 - 100 mg/dL LAB CHEMISTRY METHOD 10/11/2024 1:08 PM [facility] VLDL Cholesterol Jose 20.2 mg/dL LAB CHEMISTRY METHOD 10/11/2024 1:08 PM [facility] Non HDL Chol. (LDL+VLDL) 114 <145 mg/dL LAB CHEMISTRY METHOD 10/11/2024 1:08 PM [facility] Chol/HDL Ratio 3.5 0.0 - 4.4 LAB CHEMISTRY METHOD 10/11/2024 1:08 PM [facility] Blood Venous blood specimen / Unknown Venipuncture / Unknown 10/11/2024 12:07 PM EST 10/11/2024 12:28 PM EST us Pierre Kate MD LAB BLOOD ORDERABLES Final Resul t [facility] [address] [place] [address], * (ABNORMAL) Comprehensive metabolic panel (10/11/2024 12:07 PM EST) Pathologist [facility] Sodium 141 133 - 145 mmol/L LAB CHEMISTRY METHOD 10/11/2024 1:08 PM [facility] Potassium 4.5 3.5 - 5.5 mmol/L LAB CHEMISTRY METHOD 10/11/2024 1:08 PM [facility] Chloride 107 96 - 110 mmol/L LAB CHEMISTRY METHOD 10/11/2024 1:08 PM [facility] CO2 30 21 - 32 mmol/L LAB CHEMISTRY METHOD 10/11/2024 1:08 PM [facility] Anion Gap 4 3 - 11 LAB CHEMISTRY METHOD 10/11/2024 1:08 PM [facility] Glucose 119(H) 70 - 100 mg/dL LAB CHEMISTRY METHOD 10/11/2024 1:08 PM [facility] BUN 27(H) 5 - 25 mg/dL LAB CHEMISTRY METHOD 10/11/2024 1:08 PM [facility] Creatinine 1.00 0.70 - 1.30 mg/dL LAB CHEMISTRY METHOD 10/11/2024 1:08 PM [facility] eGFR 72 >=60 mL/min/1. 73m2 LAB CHEMISTRY METHOD 10/11/2024 1:08 PM [facility] Comment:Calculation based on the Chronic Kidney Disease Epidemiology Collaboration (CKD-EPI) equation refit without adjustment for race. BUN/Creatinine Ratio 27.0 LAB CHEMISTRY METHOD 10/11/2024 1:08 PM [facility] Calcium 10.0 8.5 - 10.5 mg/dL LAB CHEMISTRY METHOD 10/11/2024 1:08 PM [facility] AST (SGOT) 22 10 - 42 unit/L LAB CHEMISTRY METHOD 10/11/2024 1:08 PM [facility] ALT (SGPT) 23 10 - 60 unit/L LAB CHEMISTRY METHOD 10/11/2024 1:08 PM [facility] Alkaline Phosphatase 61 42 - 121 unit/L LAB CHEMISTRY METHOD 10/11/2024 1:08 PM [facility] Total Protein 6.4 6.0 - 8.0 g/dL LAB CHEMISTRY METHOD 10/11/2024 1:08 PM [facility] Albumin 3.7 3.2 - 5.0 g/dL LAB CHEMISTRY METHOD 10/11/2024 1:08 PM [facility] Total Bilirubin 0.7 0.0 - 1.4 mg/dL LAB CHEMISTRY METHOD 10/11/2024 1:08 PM [facility] Blood Venous blood specimen / Unknown Venipuncture / Unknown 10/11/2024 12:07 PM EST 10/11/2024 12:28 PM EST Pierre Kate MD LAB BLOOD ORDERABLES Final Resul t [facility] [address] [place] [address], from Last 3 Months or Most Recently Relevant to Health Maintenance Insurance [employer] [place] MEDICARE ADVANTAGE Care Teams Ekg Manager Relationship Specialty Start Date End Date Pierre Kate MD [address] [place] [address] PCP - General Internal Medicine 07/23/12
--- OUTSIDE RECORDS SUMMARY | 2025-05-30 12:27 | XMS_ITS | Clinical Summary ---
Author Organization [facility] Address [address] [place] [address] Care Team Providers Care Biofuels Operations Manager Name Role Phone Pierre Kate MD Primary Care Provider Allergies No known active allergies Medications Medication [...] age to complete this topic Care Teams Biofuels Operations Manager Relationship Specialty Start Date End Date Pierre Kate MD [address] [place] [id number] PCP - General Internal Medicine 09/01/22
== END 2025-05-30 11:46 | disposition home or self-care (01) ==
LOC: HO.HUSH 10:47
PROVIDERS: PCP Internal Medicine; Visit Provider Urology
DX: C61 Malignant neoplasm of prostate (principal)
CPT/HCPCS: 99213; G2211